=== PATIENT | female | born 1950 | race Caucasian/White ===

== ENCOUNTER → 2016-02-20 | Outpatient (CLI) | payer MEDICARE, OTHER ==
[~2016-02-20] MED LIST: ALBU6.7H INH; FERR325T PO; FURO10SO PO; HYDR-3583 PO; SPIR100T PO; XARE10TA PO
[2016-02-20 10:39] LABS: HEMATOCRIT 34.5 % (35.0-46.0); MEAN CELL VOLUME 91.7 FL (80.0-100.0); MEAN CORPUSCULAR HGB CONC 33.8 % (32.0-36.0); PLATELET COUNT 64 TH/MM3 (150-450); RED BLOOD COUNT 3.77 MIL/MM3 (4.00-5.30); RED CELL DISTRIBUTION WIDTH 14.8 % (11.6-17.2); WHITE BLOOD COUNT 4.6 TH/MM3 (4.0-11.0)
[2016-02-20 11:08] LABS: ALKALINE PHOSPHATASE 134 U/L (45-117); ALT (GPT) 15 U/L (10-53); ANION GAP 9 MEQ/L (5-15); AST (GOT) 16 U/L (15-37); BICARBONATE 24.3 MEQ/L (21.0-32.0); BLOOD UREA NITROGEN 9 MG/DL (7-18); CHLORIDE 92 MEQ/L (98-107); GLOMERULAR FILTRATION RATE 72 ML/MIN (>89); GLUCOSE,FASTING 109 MG/DL (74-99); POTASSIUM 3.9 MEQ/L (3.5-5.1); SODIUM (NA) 125 MEQ/L (136-145); TOTAL BILIRUBIN ADULT 1.8 MG/DL (0.2-1.0)
[2016-02-20 11:20] LABS: REVIEW FLAG AUTO DIFF
== END ==
LOC: CLAB 10:15
PROVIDERS: ATTEND Family Medicine
DX: J44.9 Chronic obstructive pulmonary disease, unspecified (principal); M25.551 Pain in right hip; K74.60 Unspecified cirrhosis of liver
CPT/HCPCS: 36415; 80053; 82140; 85027

== ENCOUNTER → 2016-03-27 | Day surgery (SDC) | payer MEDICARE, OTHER ==
[~2016-03-27] MED LIST changes: +BUPIVACAINE/EPINEPHRINE 0.25% PF 30 ML VIAL ONE; +BUPIVACAINE/EPINEPHRINE 0.5% PF 30 ML VIAL ONE; +MEPERIDINE HCL 25 MG/ML VIAL ONE; +MIDAZOLAM HCL 2 MG/2 ML VIAL ONE; +ONDANSETRON HCL 4 MG/2 ML VIAL IV PUSH ONE; +PROPOFOL 200 MG/20 ML AMP IV ONE; +SODIUM CHLORIDE 0.9% 20 ML VIAL ONE; +VANCOMYCIN 500 MG VIAL ONE; +ceFAZolin 2 GM PREMIX 50 ML ONE
--- NOTE | 2016-03-27 11:14 | TN ---
cc: ELIEZER PRABHAKAR DATE OF SURGERY: 03/27/2016 PREOPERATIVE DIAGNOSIS 1. History of liver disease. 2. Umbilical hernia. POSTOPERATIVE DIAGNOSIS 1. History of liver disease. 2. Umbilical hernia. PROCEDURE Open primary umbilical hernia repair, 5 cm x 5 cm defect primary repair. ANESTHESIA General and local anesthetic. ATTENDING SURGEON Dr. Prabhakar. RESIDENTIAL GAS HEAT TECHNICIAN Staff. BLOOD LOSS Less than 10 ccs. COMPLICATIONS None. FINDINGS 5 cm x 5 cm umbilical defect with no intra-abdominal ascites with chronically incarcerated hernia. 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 The patient currently has no ascites but has a large 5 cm chronically incarcerated umbilical hernia with bowel. The patient does not have obstructive symptoms, but due to the small neck of the hernia and a large amount of bowel incarcerated in the hernia this was high risk for incarceration. Despite the patient's increased risk due to her liver and kidney disease the operative repair of this was indicated due to high risk of incarceration. We had discussed risks, benefits and alternatives with the patient in detail and all of her questions were answered to her satisfaction. She did wish to undergo repair of the hernia. PROCEDURE After informed consent was obtained, the patient was taken to the operating room and placed in the supine position, placed under general anesthesia. The patient's abdomen was prepped and draped in sterile fashion. Time-out was performed. Local anesthetic, 0.25% Marcaine was used at the planned incision site. Approximately 10 cm incision was made horizontally over the hernia. We used blunt dissection as well as Bovie electrocautery to dissect out the hernia sac away from subcutaneous tissue, all the way down to the umbilical defect. Once we had mobilized this we were actually able to reduce the hernia sac contents back into the abdomen. We did ligate the sac and over-sew this with 0 locking running suture. We were then able to reduce this down to the defect. The fascia edges were intact and very strong. We did cut this back a few millimeters to good fascial edges. We had actually very minimal tension to close this horizontally. We then turned our attention towards closure and closed this with approximately 10 interrupted 2-0 Prolene sutures. We had good technical repair. We then were able to excise some access skin, this is large of size hernia and close the skin with 3-0 deep dermal Vicryls followed by 4-0 Monocryl and Dermabond. We did also of note, did place one 3-0 Vicryl to recreate the umbilical skin fold. The patient had a binder placed on her abdomen, was discontinued from anesthesia and taken to the PACU in stable condition. The patient tolerated the procedure well. No apparent complications. All counts were correct and I was present and scrubbed for the entire procedure. MD RANDI Moise/HOLLY /10:42 AM /10:51 AM
== END | disposition home or self-care (01) ==
LOC: ESDC 07:37
PROVIDERS: ATTEND Surgery
DX: K42.0 Umbilical hernia with obstruction, without gangrene (principal); K76.9 Liver disease, unspecified
CPT/HCPCS: 00750; 49587; 88302; J0690; J2175; J2250; J2405; J3010; 88304; J3370

== ENCOUNTER → 2016-05-27 | Outpatient (CLI) | payer MEDICARE, OTHER ==
[~2016-05-27] MED LIST changes: -BUPIVACAINE/EPINEPHRINE 0.25% PF 30 ML VIAL ONE; -BUPIVACAINE/EPINEPHRINE 0.5% PF 30 ML VIAL ONE; -MEPERIDINE HCL 25 MG/ML VIAL ONE; -MIDAZOLAM HCL 2 MG/2 ML VIAL ONE; -ONDANSETRON HCL 4 MG/2 ML VIAL IV PUSH ONE; -PROPOFOL 200 MG/20 ML AMP IV ONE; -SODIUM CHLORIDE 0.9% 20 ML VIAL ONE; -VANCOMYCIN 500 MG VIAL ONE; -ceFAZolin 2 GM PREMIX 50 ML ONE
[2016-05-27 15:25] LABS: AUTOMATED NEUTROPHIL # 2.2 TH/MM3 (1.8-7.7); BASOPHIL % 0.8 % (0.0-2.0); EOSINOPHIL # 0.1 TH/MM3 (0-0.4); HEMATOCRIT 37.3 % (35.0-46.0); LYMPH % 27.7 % (9.0-44.0); MEAN CELL VOLUME 97.4 FL (80.0-100.0); MEAN CORPUSCULAR HEMOGLOBIN 32.5 PG (27.0-34.0); MEAN CORPUSCULAR HGB CONC 33.4 % (32.0-36.0); MONO % 10.5 % (0.0-8.0); PLATELET COUNT 57 TH/MM3 (150-450); RED BLOOD COUNT 3.83 MIL/MM3 (4.00-5.30); RED CELL DISTRIBUTION WIDTH 14.1 % (11.6-17.2); WHITE BLOOD COUNT 3.7 TH/MM3 (4.0-11.0)
[2016-05-27 15:30] LABS: HEMO FLAGS AUTO DIFF
[2016-05-27 15:51] LABS: ALT (GPT) 19 U/L (10-53); AMYLASE 37 U/L (25-115); ANION GAP 7 MEQ/L (5-15); AST (GOT) 29 U/L (15-37); BICARBONATE 27.4 MEQ/L (21.0-32.0); BLOOD UREA NITROGEN 6 MG/DL (7-18); CHLORIDE 102 MEQ/L (98-107); GLOMERULAR FILTRATION RATE 81 ML/MIN (>89); GLUCOSE,FASTING 98 MG/DL (74-99); SODIUM (NA) 136 MEQ/L (136-145)
[2016-05-27 15:54] LABS: ALKALINE PHOSPHATASE 162 U/L (45-117); HDL CHOLESTEROL 73.8 MG/DL (40.0-60.0); LDL CHOLESTEROL 74 MG/DL (0-99); TOTAL BILIRUBIN ADULT 1.1 MG/DL (0.2-1.0)
[2016-05-27 16:14] LABS: PLATELET ESTIMATE SMEAR LOW (NORMAL)
[2016-05-27 16:15] LABS: PLATELET MORPHOLOGY ENLARGED (NORMAL); SCAN/DIFF AUTO DIFF CONFIRMED
== END ==
LOC: CLAB 14:45
PROVIDERS: ATTEND Family Medicine
DX: K74.60 Unspecified cirrhosis of liver (principal)
CPT/HCPCS: 36415; 80053; 80061; 82140; 82150; 83690; 85025

== ENCOUNTER 2016-12-10 21:28 | Inpatient (IN) | payer MEDICARE, OTHER ==
[~2016-12-10] VITALS: Ht 172.7 cm; Wt 75.0 kg
[2016-12-10 21:38] VITALS: BP 149/92; PULSE 104; RESP 16; TEMP 98.5; O2SAT 95
--- NOTE | 2016-12-10 21:55 | PD ---
Physical Exam Date Seen by Provider: Dec 10, 2016 Time Seen by Provider: 21:52 Narrative 66-year-old [id number] white female presents to emergency department by EMS for evaluation of a fall. Patient is complaining of pain in her left elbow. Patient was immobilized by before EMS evaluated the patient. The patient denies any injury to her head, neck or back. No numbness, tingling or weakness. She states the pain is severe. Patient admits to intoxication. Vital signs reviewed. Pt waiting for bed placement. Data Data Last Documented VS Vital Signs Date Time Temp Pulse Resp B/P (MAP) Pulse Ox O2 Delivery O2 Flow Rate FiO2 12/10/16 21:38 98.5 104 16 149/92 (111) 95 Room Air [facility] Medical Record Reviewed: No Supervised Visit with TRELL: Roby Mansfield Dec 10, 2016 21:55
--- NOTE | 2016-12-10 21:55 | PD ---
Physical Exam Date Seen by Provider: Dec 10, 2016 Time Seen by Provider: 21:52 Narrative 66-year-old [id number] white female presents to emergency department by EMS for evaluation of a fall. Patient is complaining of pain in her left elbow. Patient was immobilized by before EMS evaluated the patient. The patient denies any injury to her head, neck or back. No numbness, tingling or weakness. She states the pain is severe. Patient admits to intoxication. Vital signs reviewed. Pt waiting for bed placement. Data Data Last Documented VS Vital Signs Date Time Temp Pulse Resp B/P (MAP) Pulse Ox O2 Delivery O2 Flow Rate FiO2 12/10/16 21:38 98.5 104 16 149/92 (111) 95 Room Air [facility] Medical Record Reviewed: No Supervised Visit with TRELL: Roby Mansfield Dec 10, 2016 21:55
--- NOTE | 2016-12-10 21:55 | PD ---
Physical Exam Date Seen by Provider: Dec 10, 2016 Time Seen by Provider: 21:52 Narrative 66-year-old [id number] white female presents to emergency department by EMS for evaluation of a fall. Patient is complaining of pain in her left elbow. Patient was immobilized by before EMS evaluated the patient. The patient denies any injury to her head, neck or back. No numbness, tingling or weakness. She states the pain is severe. Patient admits to intoxication. Vital signs reviewed. Pt waiting for bed placement. Data Data Last Documented VS Vital Signs Date Time Temp Pulse Resp B/P (MAP) Pulse Ox O2 Delivery O2 Flow Rate FiO2 12/10/16 21:38 98.5 104 16 149/92 (111) 95 Room Air [facility] Medical Record Reviewed: No Supervised Visit with TRELL: Roby Mansfield Dec 10, 2016 21:55
--- NOTE | 2016-12-10 23:06 | PD ---
HPI Chief Complaint: Injury Time Seen by Provider: 22:51 Travel History International Travel<30 days: No Contact w/Intl Traveler<30days: No Traveled to known affect area: No History of Present Illness HPI PT STATES SHE WAS DRINKING ALCOHOL, THEN WHEN SHE TRIED TO GET UP LOST HER BALANCE/TRIPPED ON HER FLIP FLOPS AND LANDED ON HER LEFT ELBOW JUST REFRIGERATION INSULATOR. C/O PAIN, SHARP, NEAR LEFT ELBOW, 8/10, WORSE WITH MOVEMENT, NO ALLEVIATING FACTORS , (DENIES TAKING ANY ANTICOAGULATING MEDICATIONS). REVIEWED CHART AND RN NOTES ALL: MULTIPLE PMHX:COPD, CHF, LOBECTOMY, NOT OXYGEN DEPENDANT PFSH Past Medical History Arthritis: Yes Asthma: Yes Autoimmune Disease: No Anxiety: Yes Depression: No Heart Rhythm Problems: No Cancer: No Cardiovascular Problems: Yes High Cholesterol: No Chemotherapy: No Chest Pain: No Congestive Heart Failure: Yes Cirrhosis: Yes COPD: Yes Cerebrovascular Accident: No Coronary Artery Disease: No Diabetes: No Diminished Hearing: No Endocrine: No Gastrointestinal Disorders: Yes GERD: Yes Genitourinary: No Hepatitis: Yes (HEP C) Hiatal Hernia: No Immune Disorder: No Kidney Stones: No Musculoskeletal: Yes Neurologic: Yes Psychiatric: Yes Reproductive: No Respiratory: Yes Immunizations Current: Yes Migraines: Yes Pneumonia: Yes Radiation Therapy: No Renal Failure: No Seizures: No Sickle Cell Disease: No Sleep Apnea: No Thyroid Disease: No Ulcer: No Tetanus Vaccination: < 5 Years Influenza Vaccination: Yes Menopausal: Yes : 4 Para: 4 Tubal Ligation: Yes Past Surgical History Abdominal Surgery: No AICD: No Arteriovenous Shunt: No Cardiac Surgery: No Ear Surgery: No Endocrine Surgery: No Eye Surgery: No Genitourinary Surgery: No Gynecologic Surgery: No Insulin Pump: No Joint Replacement: No Oral Surgery: No Pacemaker: No Thoracic Surgery: Yes (LEFT LOBECTOMY) Tonsillectomy: Yes Other Surgery: Yes (left lung) Social History Alcohol Use: Yes Tobacco Use: Yes (2 CIGS/DAILY) Substance Use: Yes (MARIJUANA ) Allergies-Medications (Allergen,Severity, Reaction): Coded Allergies: Sulfa (Sulfonamide Antibiotics) (Unverified Allergy, Intermediate, REDNESS , 12/10/16) Opioids - Morphine Analogues (Unverified Adverse Reaction, Intermediate, NAUSEA VOMITING, HEADACHES, 12/10/16) Opioids-Meperidine and Related (Unverified Adverse Reaction, Intermediate , NAUSEA VOMITING, HEADACHES, 12/10/16) Opioids-Methadone and Related (Unverified Adverse Reaction, Intermediate, NAUSEA VOMITING, HEADACHES, 12/10/16) Reported Meds & Prescriptions Reported Meds & Active Scripts Active Oxycodone (Oxycodone HCl) 10 Mg Tab 10 Mg PO Q4H PRN Calcium 600+D 200 (Calcium Carbonate-Vitamin D) 600-200 Mg-Unit Tab 1 Tab PO BID Xarelto (Rivaroxaban) 10 Mg Tab 10 Mg PO DAILY Ferrous Sulfate 325 Mg Tab 325 Mg PO DAILY Hydrocodone-Acetaminophen 10-325 mg Tab 1 Tab PO Q4H PRN Reported Spironolactone 100 Mg Tab 100 Mg PO DAILY Furosemide Liq (Furosemide) 10 Mg/Ml Soln 40 Mg PO DAILY Proventil Hfa 6.7 GM Inh (Albuterol Sulfate) 90 Mcg/Act Aer 2 Puff INH Q4HR PRN SHAKE WELL BEFORE USE Review of Systems Except as stated in HPI: all other systems reviewed are Neg General / Constitutional: No: Fever Eyes: No: Visual changes HENT: No: Headaches Cardiovascular: No: Chest Pain or Discomfort Respiratory: No: Shortness of Breath Gastrointestinal: No: Abdominal Pain Genitourinary: No: Dysuria Musculoskeletal: Positive: Pain (LEFT ELBOW PAIN) Skin: No Rash Neurologic: No: Weakness Psychiatric: No: Depression Endocrine: No: Polydipsia Hematologic/Lymphatic: No: Easy Bruising Physical Exam Narrative GENERAL: SKIN: Warm and dry. PATIENT HAS DEFORMITY TO HER LEFT OLECRANON AREA. ON THIS AREA ALSO HAS 3 SEPARATE WOUNDS TWO OF WHICH ARE PUNCTURE WOUND LIKE AND ONE THAT IS V SHAPED AT 2CM TOTAL LENGTH. HEAD: Atraumatic. Normocephalic. EYES: Pupils equal and round. No scleral icterus. No injection or drainage. ENT: No nasal bleeding or discharge. Mucous membranes pink and moist. NECK: Trachea midline. No JVD. CARDIOVASCULAR: Regular rate and rhythm. RESPIRATORY: No accessory muscle use. Clear to auscultation. Breath sounds equal bilaterally. GASTROINTESTINAL: Abdomen soft, non-tender, nondistended. MUSCULOSKELETAL: Extremities without clubbing, cyanosis, or edema. No obvious deformities. NEUROLOGICAL: Awake and alert. No obvious cranial nerve deficits. Motor grossly within normal limits. Five out of 5 muscle strength in the arms and legs. Normal speech. PSYCHIATRIC: Appropriate mood and affect; insight and judgment normal. Data Data Last Documented VS Vital Signs Date Time Temp Pulse Resp B/P (MAP) Pulse Ox O2 Delivery O2 Flow Rate FiO2 12/10/16 23:49 71 18 148/66 (93) 98 Room Air 12/10/16 21:38 98.5 Orders Orders Complete Blood Count With Diff (12/10/16 23:20) Basic Metabolic Panel (Bmp) (12/10/16 23:20) Prothrombin Time / Inr (Pt) (12/10/16 23:20) Act Partial Throm Time (Ptt) (12/10/16 23:20) Urinalysis - C+S If Indicated (12/10/16 23:20) Iv Access Insert/Monitor (12/10/16 23:20) Drug Screen, Random Urine (12/10/16 23:20) Alcohol (Ethanol) (12/10/16 23:20) Salicylates (Aspirin) (12/10/16 23:20) Tylenol (Acetaminophen) (12/10/16 23:20) Morphine Inj (Morphine Inj) (12/10/16 23:30) Splinting (12/10/16 ) Elbow, Limited (Ap&Lat) (12/10/16 ) Lidocaine 1% Inj (50 Ml) (Xylocaine 1% I (12/11/16 00:30) Hepatic Functional Panel (12/11/16 02:27) Magnesium (Mg) (12/11/16 02:27) Sodium Chlor 0.9% 1000 Ml Inj (Ns 1000 M (12/11/16 02:30) Admit Order (Ed Use Only) (12/11/16 03:01) Labs Laboratory Tests Test 12/10/16 23:48 White Blood Count 2.8 TH/MM3 Red Blood Count 3.37 MIL/MM3 Hemoglobin 11.9 GM/DL Hematocrit 34.1 % Mean Corpuscular Volume 101.2 FL Mean Corpuscular Hemoglobin 35.4 PG Mean Corpuscular Hemoglobin Concent 35.0 % Red Cell Distribution Width 14.6 % Platelet Count 38 TH/MM3 Mean Platelet Volume 10.9 FL Neutrophils (%) (Auto) 63.1 % Lymphocytes (%) (Auto) 26.5 % Monocytes (%) (Auto) 8.5 % Eosinophils (%) (Auto) 1.2 % Basophils (%) (Auto) 0.7 % Neutrophils # (Auto) 1.8 TH/MM3 Lymphocytes # (Auto) 0.8 TH/MM3 Monocytes # (Auto) 0.2 TH/MM3 Eosinophils # (Auto) 0.0 TH/MM3 Basophils # (Auto) 0.0 TH/MM3 CBC Comment AUTO DIFF Differential Total Cells Counted 100 Neutrophils % (Manual) 57 % Band Neutrophils % 14 % Lymphocytes % 18 % Monocytes % 7 % Eosinophils % 3 % Basophils % 1 % Neutrophils # (Manual) 2.0 TH/MM3 Differential Comment FINAL DIFF MANUAL Platelet Estimate LOW Platelet Morphology Comment ENLARGED Prothrombin Time 13.8 SEC Prothromb Time International Ratio 1.2 RATIO Activated Partial Thromboplast Time 34.8 SEC Blood Urea Nitrogen 4 MG/DL Creatinine 0.50 MG/DL Random Glucose 118 MG/DL Calcium Level 7.8 MG/DL Sodium Level 124 MEQ/L Potassium Level 4.1 MEQ/L Chloride Level 90 MEQ/L Carbon Dioxide Level 21.5 MEQ/L Anion Gap 13 MEQ/L Estimat Glomerular Filtration Rate 124 ML/MIN Magnesium Level 1.7 MG/DL Total Bilirubin 1.4 MG/DL Direct Bilirubin 0.4 MG/DL Indirect Bilirubin 1.0 MG/DL Aspartate Amino Transf (AST/SGOT) 78 U/L Alanine Aminotransferase (ALT/SGPT) 34 U/L Alkaline Phosphatase 182 U/L Total Protein 8.7 GM/DL Albumin 3.3 GM/DL Salicylates Level 2.9 MG/DL Acetaminophen Level LESS THAN 2.0 MCG/ML Ethyl Alcohol Level 296 MG/DL MDM Medical Decision Making Medical Screen Exam Complete: Yes Emergency Medical Condition: Yes Medical Record Reviewed: Yes Differential Diagnosis FX V DISLOCATION V SUBLUXATION Narrative Course XRAY REVEALED TRANSVERSE SUPRACONDYLAR FX WITH 30 DEGREE ANTERIOR ANGULATION...CLOSED. Physician Communication Physician Communication D/W DR SERRA WHO REQUESTS NPO AND WILL REPAIR IN AM....SIGNED OUT PENDING LABS AND ADMIT TO [facility]. Diagnosis Primary Impression: ANGULATED LEFT SUPRACONDYLAR FRACTURE Additional Impression: Acute alcohol intoxication Qualified Codes: F10.929 - Alcohol use, unspecified with intoxication, unspecified Admitting Information Admitting Physician Requests: Admit Scripts Oxycodone (Oxycodone) 10 Mg Tab 10 MG PO Q4H Y for PAIN, #60 TAB 0 Refills Prov: Jatin Castorena Jr. 12/11/16 Calcium Carbonate-Vitamin D (Calcium 600+D 200) 600-200 Mg-Unit Tab 1 TAB PO BID for Nutritional Supplement, #60 TAB 0 Refills Prov: Jatin Castorena Jr. 12/11/16 nAgel David MD Dec 10, 2016 23:06
[2016-12-10] MEDS ORDERED: MORPHINE SULFATE 2 MG/ML INJ IV PUSH ONE (23:30)
[2016-12-10 23:49] VITALS: BP 148/66; PULSE 71; RESP 18; O2SAT 98
--- NOTE | 2016-12-10 23:52 | RADRPT ---
EXAM DATE/TIME: 12/10/2016 23:14 [place] COMPARISON: No previous studies available for comparison. INDICATIONS : Elbow pain from falling down stairs. MEDICAL HISTORY : None. SURGICAL HISTORY : None. ENCOUNTER: Initial ACUITY: 1 day PAIN SCORE: 0/10 LOCATION: Left elbow FINDINGS: There is a comminuted primarily transverse fracture of the immediate supracondylar left humerus with approximately 30 apex anterior angulation and slight impaction at the fracture site. There is slight splaying of the condylar fragments with a longitudinal fracture component which appears to extend in to the elbow joint centrally. The radius and ulna are grossly intact. There is prominent soft tissue swelling over the olecranon. Couple small ossific densities adjacent to and posterior to the olecrano n may be tiny avulsion or chip fractures or foreign material if there is skin disruption in this area . There does appear to be soft tissue air in the volar soft tissues of the forearm CONCLUSION: Complex left elbow fracture as described Eddie Velazquez MD on December 10, 2016 at 23:47 Board Certified Radiologist. This report was verified electronically.
[2016-12-11] VITALS (9 sets, daily range): BP systolic 127–178; BP diastolic 52–79; PULSE 73–100; RESP 17–21; TEMP 96.6–99.7; O2SAT 92–100
[2016-12-11] MEDS ORDERED: LIDOCAINE HCL 1% 50 ML VIAL INFIL ONE (00:30)
[2016-12-11 02:08] LABS: AUTOMATED NEUTROPHIL # 1.8 TH/MM3 (1.8-7.7); BASOPHIL % 0.7 % (0.0-2.0); EOSINOPHIL % 1.2 % (0.0-4.0); HEMATOCRIT 34.1 % (35.0-46.0); HEMOGLOBIN 11.9 GM/DL (11.6-15.3); LYMPH % 26.5 % (9.0-44.0); LYMPHOCYTE # 0.8 TH/MM3 (1.0-4.8); MEAN CELL VOLUME 101.2 FL (80.0-100.0); MEAN CORPUSCULAR HEMOGLOBIN 35.4 PG (27.0-34.0); MEAN PLATELET VOLUME 10.9 FL (7.0-11.0); MONO % 8.5 % (0.0-8.0); MONOCYTE # 0.2 TH/MM3 (0-0.9); NEUT % 63.1 % (16.0-70.0); PLATELET COUNT 38 TH/MM3 (150-450); RED BLOOD COUNT 3.37 MIL/MM3 (4.00-5.30); RED CELL DISTRIBUTION WIDTH 14.6 % (11.6-17.2); WHITE BLOOD COUNT 2.8 TH/MM3 (4.0-11.0)
[2016-12-11 02:20] LABS: INTERNATIONAL NORMALIZED RATIO 1.2 RATIO; PROTHROMBIN TIME - PATIENT 13.8 SEC (9.8-11.6)
[2016-12-11 02:23] LABS: ACETAMINOPHEN LESS THAN 2.0 MCG/ML (10.0-30.0); BICARBONATE 21.5 MEQ/L (21.0-32.0); BLOOD UREA NITROGEN 4 MG/DL (7-18); CALCIUM 7.8 MG/DL (8.5-10.1); CHLORIDE 90 MEQ/L (98-107); GLOMERULAR FILTRATION RATE 124 ML/MIN (>89); GLUCOSE,RANDOM 118 MG/DL (74-106)
[2016-12-11 02:25] LABS: SODIUM (NA) 124 MEQ/L (136-145)
[2016-12-11] MEDS ORDERED: SODIUM CHLOR 0.9% 1000 ML INJ 1,000 ML IV ONE (02:30)
--- NOTE | 2016-12-11 02:49 | PD ---
Physical Exam Date Seen by Provider: Dec 11, 2016 Time Seen by Provider: 02:46 Narrative For full history and physical examination please see previous provider's note. Data Data Last Documented VS Vital Signs Date Time Temp Pulse Resp B/P (MAP) Pulse Ox O2 Delivery O2 Flow Rate FiO2 12/10/16 23:49 71 18 148/66 (93) 98 Room Air 12/10/16 21:38 98.5 Orders Orders Complete Blood Count With Diff (12/10/16 23:20) Basic Metabolic Panel (Bmp) (12/10/16 23:20) Prothrombin Time / Inr (Pt) (12/10/16 23:20) Act Partial Throm Time (Ptt) (12/10/16 23:20) Urinalysis - C+S If Indicated (12/10/16 23:20) Iv Access Insert/Monitor (12/10/16 23:20) Drug Screen, Random Urine (12/10/16 23:20) Alcohol (Ethanol) (12/10/16 23:20) Salicylates (Aspirin) (12/10/16 23:20) Tylenol (Acetaminophen) (12/10/16 23:20) Morphine Inj (Morphine Inj) (12/10/16 23:30) Splinting (12/10/16 ) Elbow, Limited (Ap&Lat) (12/10/16 ) Lidocaine 1% Inj (50 Ml) (Xylocaine 1% I (12/11/16 00:30) Hepatic Functional Panel (12/11/16 02:27) Magnesium (Mg) (12/11/16 02:27) Diet Npo (12/11/16 Breakfast) Sodium Chlor 0.9% 1000 Ml Inj (Ns 1000 M (12/11/16 02:30) Admit Order (Ed Use Only) (12/11/16 03:01) Labs Laboratory Tests Test 12/10/16 23:48 White Blood Count 2.8 TH/MM3 Red Blood Count 3.37 MIL/MM3 Hemoglobin 11.9 GM/DL Hematocrit 34.1 % Mean Corpuscular Volume 101.2 FL Mean Corpuscular Hemoglobin 35.4 PG Mean Corpuscular Hemoglobin Concent 35.0 % Red Cell Distribution Width 14.6 % Platelet Count 38 TH/MM3 Mean Platelet Volume 10.9 FL Neutrophils (%) (Auto) 63.1 % Lymphocytes (%) (Auto) 26.5 % Monocytes (%) (Auto) 8.5 % Eosinophils (%) (Auto) 1.2 % Basophils (%) (Auto) 0.7 % Neutrophils # (Auto) 1.8 TH/MM3 Lymphocytes # (Auto) 0.8 TH/MM3 Monocytes # (Auto) 0.2 TH/MM3 Eosinophils # (Auto) 0.0 TH/MM3 Basophils # (Auto) 0.0 TH/MM3 CBC Comment AUTO DIFF Differential Total Cells Counted 100 Neutrophils % (Manual) 57 % Band Neutrophils % 14 % Lymphocytes % 18 % Monocytes % 7 % Eosinophils % 3 % Basophils % 1 % Neutrophils # (Manual) 2.0 TH/MM3 Differential Comment FINAL DIFF MANUAL Platelet Estimate LOW Platelet Morphology Comment ENLARGED Prothrombin Time 13.8 SEC Prothromb Time International Ratio 1.2 RATIO Activated Partial Thromboplast Time 34.8 SEC Blood Urea Nitrogen 4 MG/DL Creatinine 0.50 MG/DL Random Glucose 118 MG/DL Calcium Level 7.8 MG/DL Sodium Level 124 MEQ/L Potassium Level 4.1 MEQ/L Chloride Level 90 MEQ/L Carbon Dioxide Level 21.5 MEQ/L Anion Gap 13 MEQ/L Estimat Glomerular Filtration Rate 124 ML/MIN Magnesium Level 1.7 MG/DL Total Bilirubin 1.4 MG/DL Direct Bilirubin 0.4 MG/DL Indirect Bilirubin 1.0 MG/DL Aspartate Amino Transf (AST/SGOT) 78 U/L Alanine Aminotransferase (ALT/SGPT) 34 U/L Alkaline Phosphatase 182 U/L Total Protein 8.7 GM/DL Albumin 3.3 GM/DL Salicylates Level 2.9 MG/DL Acetaminophen Level LESS THAN 2.0 MCG/ML Ethyl Alcohol Level 296 MG/DL [facility] Medical Record Reviewed: Yes Supervised Visit with TRELL: Yes Interpretation(s) Last Impressions Elbow X-Ray 12/10/16 0000 Signed Impressions: Service Date/Time: Saturday, December 10, 2016 23:14 - CONCLUSION: Complex left elbow fracture as described Eddie Velazquez MD Laboratory Tests Test 12/10/16 23:48 Prothrombin Time 13.8 SEC Prothromb Time International Ratio 1.2 RATIO Activated Partial Thromboplast Time 34.8 SEC Blood Urea Nitrogen 4 MG/DL Creatinine 0.50 MG/DL Random Glucose 118 MG/DL Calcium Level 7.8 MG/DL Sodium Level 124 MEQ/L Potassium Level 4.1 MEQ/L Chloride Level 90 MEQ/L Carbon Dioxide Level 21.5 MEQ/L Anion Gap 13 MEQ/L Estimat Glomerular Filtration Rate 124 ML/MIN Salicylates Level 2.9 MG/DL Acetaminophen Level LESS THAN 2.0 MCG/ML Ethyl Alcohol Level 296 MG/DL Vital Signs Date Time Temp Pulse Resp B/P (MAP) Pulse Ox O2 Delivery O2 Flow Rate FiO2 12/10/16 23:49 71 18 148/66 (93) 98 Room Air 12/10/16 21:38 98.5 104 16 149/92 (111) 95 Room Air Narrative Course Patient presented to emergency for evaluation of left elbow pain after sustaining a mechanical fall. Patient has a complex fracture of the left elbow , patient will be going to the OR in the morning with Dr. Christian. Patient's sodium level is 124, 1 L normal saline IV ordered alcohol level 296 Salicylate and acetaminophen level are unremarkable Coags reviewed. CBC with a white count of 2.8, platelet count 38 Magnesium level is 1.7, LFTs reviewed [facility] paged for admission. Discussed with Dr. Church who accepted admission. Admission orders placed. Diagnosis Primary Impression: ANGULATED LEFT SUPRACONDYLAR FRACTURE Additional Impressions: Hyponatremia Acute alcohol intoxication Qualified Codes: F10.929 - Alcohol use, unspecified with intoxication, unspecified COPD (chronic obstructive pulmonary disease) Qualified Codes: J44.9 - Chronic obstructive pulmonary disease, unspecified Admitting Information Admitting Physician Requests: Admit Patient Instructions: General Instructions, Elbow Fracture (ED) Departure Forms: Tests/Procedures Sruthi Garcia Dec 11, 2016 02:49
[2016-12-11 02:50] LABS: TOTAL BILIRUBIN ADULT 1.4 MG/DL (0.2-1.0)
[2016-12-11 02:51] LABS: ALBUMIN 3.3 GM/DL (3.4-5.0); DIRECT BILIRUBIN ADULT 0.4 MG/DL (0.0-0.2); MAGNESIUM 1.7 MG/DL (1.5-2.5); TOTAL PROTEIN 8.7 GM/DL (6.4-8.2)
[2016-12-11 02:56] LABS: BANDS 14 % (0-6); BASOPHILS 1 % (0-2); LYMPHOCYTES 18 % (9-44); MONOCYTES 7 % (0-8); POLYS (SEG NEUTROPHILS) 57 % (16-70)
[2016-12-11] MEDS ORDERED: NALOXONE HCL 0.4 MG/ML AMP IV PUSH PRN ×2 (03:15→04:30)
[2016-12-11] MEDS ORDERED: LACTULOSE SYRUP 20 GM/30 ML CUP PO PRN (03:15)
[2016-12-11] MEDS ORDERED: MAGNESIUM HYDROXIDE SUSP 30 ML CUP PO PRN (03:15)
[2016-12-11] MEDS ORDERED: SODIUM CHLORIDE 0.9% FLUSH 10 ML FLUSH IV FLUSH PRN (03:15)
[2016-12-11] MEDS ORDERED: BISACODYL 10 MG SUPP RECTAL PRN (03:15)
[2016-12-11] MEDS ORDERED: SENNOSIDES 8.6 MG TAB PO PRN (03:15)
[2016-12-11] MEDS ORDERED: THIAMINE HCL 100 MG TAB PO ONE (03:15)
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
[2016-12-11] MEDS: MORPHINE SULFATE 4 MG/ML INJ IV PUSH PRN (04:51)
--- NOTE | 2016-12-11 06:35 | PD.ORT.PN ---
Subjective Subjective Remarks s/p fall while drinking at home left elbow pain. Objective Vitals Vital Signs Date Time Temp Pulse Resp B/P (MAP) Pulse Ox O2 Delivery O2 Flow Rate FiO2 12/11/16 04:00 96.6 80 17 150/67 (94) 99 12/11/16 03:51 75 18 140/71 (94) 100 12/10/16 23:49 71 18 148/66 (93) 98 Room Air 12/10/16 21:38 98.5 104 16 149/92 (111) 95 Room Air I/O 12/10/16 12/10/16 12/10/16 12/11/16 12/11/16 12/11/16 07:00 15:00 23:00 07:00 15:00 23:00 Intake Total 0 ml Balance 0 ml Intake Oral 0 ml # Voids 1 # Bowel Movements 0 Result Diagram: 12/10/16 2348 12/10/16 2348 Other Results Laboratory Tests Test 12/10/16 23:48 Prothromb Time International Ratio 1.2 RATIO Prothrombin Time 13.8 SEC (9.8-11.6) Objective Remarks LUE: +long arm splint. intact. NVI Assessment & Plan Assessment and Plan 1) Left distal Humerus Fx -npo -consents -surgery today Isael Morocho Dec 11, 2016 06:35
[2016-12-11] MEDS ORDERED: CALCTAB19 PO (06:43)
[2016-12-11] MEDS ORDERED: OXYC-395 PO (06:44)
[2016-12-11] MEDS: SODIUM CHLORIDE 0.9% FLUSH 10 ML FLUSH IV FLUSH SCH ×2 (09:00→21:00)
[2016-12-11] MEDS: THIAMINE HCL 100 MG TAB PO SCH (09:00)
--- NOTE | 2016-12-11 11:24 | MB ---
cc: PRINCE SEGUNDO DATE OF CONSULTATION: 12/11/2016 REASON FOR CONSULTATION Left distal humerus fracture. CONSULTING PHYSICIAN Dr. Church. HISTORY OF PRESENT ILLNESS Nimisha is a 66-year-old female who has a history of chronic alcoholism. She was drinking last night. She fell. She was going upstairs to go to the bathroom. She landed on her left arm. She had immediate left arm pain. She presented to the emergency room where x-rays revealed a comminuted displaced intra-articular left distal humerus fracture. She is currently awake and alert. Her only complaint is her left elbow. Pain is worse with movement. PAST MEDICAL HISTORY ILLNESSES 1. COPD. 2. Hepatitis C. 3. Alcoholic cirrhosis. 4. History of migraines. SURGERIES 1. Right hip replacement. 2. Partial lung lobectomy. 3. Ankle surgery. 4. Tonsillectomy. MEDICATIONS Please see EMR for complete list of inpatient medications. She denies any outpatient medications. ALLERGIES SULFA, OPIOIDS. FAMILY HISTORY Positive for alcohol in her father. SOCIAL HISTORY The patient smokes half-a-pack a day. She smokes marijuana. She drinks alcohol. REVIEW OF SYSTEMS The patient denies headache, visual changes, neck pain, chest pain, shortness of breath, abdominal pain, nausea, vomiting or recent weight loss or numbness or tingling of extremities. She denies fever or chills. She complains of left arm pain. PHYSICAL EXAMINATION GENERAL: The patient is a well-developed, well-nourished 66-year-old female who is awake and alert. She is alert and oriented x3. She appears well-developed, well-nourished. VITAL SIGNS: Temperature 98.4, pulse 73, respirations 18, blood pressure 127/62, O2 sat 95% on room air. HEAD: The patient is normocephalic. Pupils are equal. NECK: Soft, nontender. Trachea is midline. ABDOMEN: Soft, nontender, nondistended. EXTREMITIES: Examination of left arm reveals no tenderness around her shoulder, wrist or fingers. She has intact sensation in all fingers. She has good cap refill in all fingers. Skin is intact. She is very tender to palpation around the elbow. Examination of right arm reveals no pain with shoulder, elbow or wrist motion. She has intact sensation in all fingers. She has good cap refill in all fingers. Skin is intact. Radial pulses palpable. Examination of bilateral lower extremities reveals no pain with hip, knee or ankle motion. Skin is intact. Dorsalis pedis pulses palpable. Sensation is intact to both feet. X-RAYS X-rays of left elbow were reviewed. X-rays reveal comminuted intra-articular left distal humerus fracture. IMPRESSION 1. Alcohol abuse. 2. Alcoholic cirrhosis. 3. Low platelet count of 38,000. 4. Comminuted left distal humerus fracture. PLAN At this point the patient will need a transfusion of platelets prior to surgery. Due to her alcoholism her platelet count is extremely low. Once her platelet count has been elevated, I will plan on surgery. The patient will need open reduction, internal fixation of the left distal humerus. Risks of surgery include bleeding, infection, injuries to arteries, nerves and blood vessels, weakness and numbness of hand as well as medical complications including blood clot, stroke, heart attack and were discussed. All questions were answered. I will plan on surgery today. A mid-level provider in my office (nurse practitioner or physician clerical administrative assistant) may see this patient on follow-up visits and continue to implement the objectives of this plan including: Starting or adjusting medications, injections , cast application, orthotics, brace application, physical therapy, radiological studies (including x-ray, MRI, CT, ultrasound, bone scan), vascular studies, neurologic studies, specialist consultation, and proceeding with surgical management, as appropriate. Prince MD SRIRAM Gaines/HOLLY /11:10 AM /11:16 AM JESUS
--- NOTE | 2016-12-11 13:28 | HHI.PR ---
Addendum to Inpatient Note Addendum Reason: Additional Documentation Additional Information Pt tells me that she is in pain. When asked about her alcohol intake she tells me that she drinks "very little" and when asked to quantify, she states that she drinks about 4-5 drinks a day. denies any chest pain, SOB, nausea or vomiting. on exam, asleep but easily arousable, HR rrr w no murmurs, lungs clear, left arm in sling, able to wiggle her fingers, sensation intact. I agree w admitting physician, Dr. Church that pt not appropriate for sx today due to low sodium levels and platelet count. Dr. HunterCall has been notified and is agreeable to postpone the surgery for tomorrow or friday. Maintain her on fluid restriction. Hyponatremia most likely from her alcoholism. Monitor sodium levels. CIWA protocol has been ordered, sz and fall precautions ordered. Pt has been extensively counseled on quitting drinking. Repeat CBC and BMP in the morning. If platelet count not improved by tomorrow, consider transfusing patient 1 unit of platelets prior to sx. Give gentle hydration w NS@50ml/hr for a total of 500mls Merari Simon MD Dec 11, 2016 13:28
[2016-12-11] MEDS ORDERED: LORazepam 1 MG TAB PO PRN (13:45)
[2016-12-11] MEDS ORDERED: HALOPERIDOL LACTATE 5 MG/ML AMP IM PRN (13:45)
[2016-12-11] MEDS ORDERED: LORazepam 2 MG TAB PO PRN (13:45)
[2016-12-11] MEDS ORDERED: FLUMAZENIL 0.5 MG/5 ML VIAL IV PUSH PRN (13:45)
[2016-12-11] MEDS ORDERED: LORazepam 2 MG/ML VIAL IV PUSH PRN ×4 (13:45)
[2016-12-11] MEDS ORDERED: SODIUM CHLORID 0.9% 500 ML INJ 500 ML IV SCH (15:00)
--- NOTE | 2016-12-11 15:27 | EKG ---
Date Performed: 12/11/2016 Time Performed: 04:27:06 PTAGE: 66 years EKG: Sinus rhythm Septal T wave changes are nonspecific Low QRS voltages in precordial leads Borderline ECG PREVIOUS TRACING : 12/07/2015 22.07 Compared to prior tracing no significant change DOCTOR: Cleve Lee Interpretating Date/Time 12/11/2016 15:25:32
[2016-12-11] MEDS: ONDANSETRON HCL 4 MG/2 ML VIAL IVP PRN (16:11)
[2016-12-11] MEDS: ceFAZolin 2 GM PREMIX 50 ML IV SCH ×2 (16:12→23:15)
[2016-12-11 16:22] LABS: BICARBONATE 23.6 MEQ/L (21.0-32.0); CALCIUM 7.9 MG/DL (8.5-10.1); CREATININE 0.39 MG/DL (0.50-1.00)
[2016-12-11] MEDS: GENTAMICIN 80 MG PREMIX 100 ML IV SCH ×2 (16:33→23:16)
[2016-12-12] VITALS (16 sets, daily range): BP systolic 122–151; BP diastolic 57–83; PULSE 62–92; RESP 13–18; TEMP 96.5–100.6; O2SAT 92–100
[2016-12-12] MEDS: ONDANSETRON HCL 4 MG/2 ML VIAL IVP PRN ×2 (00:09→06:09)
[2016-12-12] MEDS: ceFAZolin 2 GM PREMIX 50 ML IV SCH ×2 (06:10→16:43)
[2016-12-12] MEDS: GENTAMICIN 80 MG PREMIX 100 ML IV SCH ×2 (06:26→14:48)
[2016-12-12] MEDS ORDERED: ACETAMINOPHEN 1000 MG/100 ML 0 ML IV ONE (06:26)
--- NOTE | 2016-12-12 06:27 | PD.ORT.PN ---
Subjective Subjective Remarks Resting comfortably Objective Vitals Vital Signs Date Time Temp Pulse Resp B/P (MAP) Pulse Ox O2 Delivery O2 Flow Rate FiO2 12/12/16 04:53 99.5 80 17 139/66 12/12/16 04:35 98.9 80 17 138/83 92 12/12/16 04:00 98.9 80 16 138/83 (101) 92 12/12/16 02:20 98.4 79 17 135/69 93 12/12/16 02:03 99.6 92 17 122/74 93 12/12/16 00:00 99.6 89 16 130/57 (81) 92 12/11/16 21:00 98.2 77 17 178/76 93 12/11/16 17:30 97.8 78 18 178/75 92 12/11/16 17:15 98.6 77 17 178/79 94 12/11/16 17:10 97.9 77 17 177/76 94 12/11/16 15:45 99.7 100 21 172/52 (92) 95 12/11/16 12:00 98.9 77 18 162/70 (100) 93 12/11/16 08:00 98.4 73 18 127/62 (83) 95 I/O 12/11/16 12/11/16 12/11/16 12/12/16 12/12/16 12/12/16 07:00 15:00 23:00 07:00 15:00 23:00 Intake Total 0 ml 0 ml 1183 ml 798 ml Balance 0 ml 0 ml 1183 ml 798 ml Intake Oral 0 ml 0 ml 480 ml 480 ml IV Total 150 ml Platelets 528 ml 288 ml Blood Product IV Normal Saline Flush 25 ml 30 ml # Voids 1 4 3 2 # Bowel Movements 0 0 0 0 Result Diagram: 12/10/16 2348 12/11/16 1529 Objective Remarks LUE: +long arm splint. intact. NVI Assessment & Plan Assessment and Plan 1) Left distal Humerus Fx -Surgery cancelled yesterday due to low platelet count. Ordered 3 units of platelets yesterday, on 3rd unit now -npo -consents -surgery today if platelet levels are safe Jatin Castorena Jr. Dec 12, 2016 06:27
[2016-12-12 06:49] LABS: AUTOMATED NEUTROPHIL # 4.9 TH/MM3 (1.8-7.7); BASOPHIL % 0.1 % (0.0-2.0); EOSINOPHIL % 0.4 % (0.0-4.0); HEMATOCRIT 21.2 % (35.0-46.0); HEMOGLOBIN 7.6 GM/DL (11.6-15.3); LYMPH % 4.2 % (9.0-44.0); LYMPHOCYTE # 0.2 TH/MM3 (1.0-4.8); MEAN CELL VOLUME 101.2 FL (80.0-100.0); MEAN CORPUSCULAR HEMOGLOBIN 36.1 PG (27.0-34.0); MEAN CORPUSCULAR HGB CONC 35.7 % (32.0-36.0); MONO % 1.3 % (0.0-8.0); MONOCYTE # 0.1 TH/MM3 (0-0.9); PLATELET COUNT 39 TH/MM3 (150-450); RED BLOOD COUNT 2.09 MIL/MM3 (4.00-5.30); RED CELL DISTRIBUTION WIDTH 14.3 % (11.6-17.2); WHITE BLOOD COUNT 5.2 TH/MM3 (4.0-11.0)
[2016-12-12 07:06] LABS: ALBUMIN 2.8 GM/DL (3.4-5.0); ALT (GPT) 24 U/L (10-53); AST (GOT) 37 U/L (15-37); BICARBONATE 25.8 MEQ/L (21.0-32.0); BLOOD UREA NITROGEN 9 MG/DL (7-18); CALCIUM 7.9 MG/DL (8.5-10.1); CHLORIDE 96 MEQ/L (98-107); CREATININE 0.76 MG/DL (0.50-1.00); GLOMERULAR FILTRATION RATE 76 ML/MIN (>89); GLUCOSE,RANDOM 119 MG/DL (74-106); SODIUM (NA) 130 MEQ/L (136-145)
[2016-12-12 07:08] LABS: ALKALINE PHOSPHATASE 114 U/L (45-117); TOTAL BILIRUBIN ADULT 2.1 MG/DL (0.2-1.0); TOTAL PROTEIN 7.2 GM/DL (6.4-8.2)
[2016-12-12] MEDS: THIAMINE HCL 100 MG TAB PO SCH (07:40)
[2016-12-12] MEDS ORDERED: SODIUM CHLOR 0.9% 250 ML INJ 250 ML IV ONE ×3 (07:45→14:30)
[2016-12-12] MEDS ORDERED: GENTAMICIN SULFATE 80 MG/2 ML VIAL ONE (08:35)
[2016-12-12] MEDS ORDERED: PHYTONADIONE 5 MG TAB PO ONE (09:00)
[2016-12-12 09:07] LABS: INTERNATIONAL NORMALIZED RATIO 1.2 RATIO; PROTHROMBIN TIME - PATIENT 13.3 SEC (9.8-11.6)
[2016-12-12 09:10] LABS: D-DIMER 2.43 MG/L FEU (0.00-0.50)
[2016-12-12 09:50] LABS: AUTOMATED NEUTROPHIL # 3.5 TH/MM3 (1.8-7.7); BASOPHIL % 0.2 % (0.0-2.0); EOSINOPHIL % 0.4 % (0.0-4.0); LYMPH % 7.3 % (9.0-44.0); LYMPHOCYTE # 0.3 TH/MM3 (1.0-4.8); MEAN CELL VOLUME 100.8 FL (80.0-100.0); MEAN CORPUSCULAR HEMOGLOBIN 35.8 PG (27.0-34.0); MEAN CORPUSCULAR HGB CONC 35.5 % (32.0-36.0); MEAN PLATELET VOLUME 8.7 FL (7.0-11.0); MONO % 4.9 % (0.0-8.0); MONOCYTE # 0.2 TH/MM3 (0-0.9); NEUT % 87.2 % (16.0-70.0); PLATELET COUNT 50 TH/MM3 (150-450); RED BLOOD COUNT 1.95 MIL/MM3 (4.00-5.30); RED CELL DISTRIBUTION WIDTH 14.2 % (11.6-17.2)
[2016-12-12] MEDS ORDERED: ceFAZolin INJ 1,000 MG VIAL IV ONE (09:50)
[2016-12-12 09:55] LABS: HEMATOCRIT 19.7 % (35.0-46.0)
[2016-12-12] MEDS ORDERED: TRANEXAMIC ACID INJ 1,125 MG in SODIUM CHLORIDE 0.9% INJ 100 ML IV SCH (10:00)
[2016-12-12] MEDS ORDERED: PHYTONADIONE 10 MG/ML VIAL SQ ONE (11:00)
[2016-12-12] MEDS ORDERED: PHYTONADIONE INJ 1 MG/0.5 ML AMP SQ ONE (11:00)
--- NOTE | 2016-12-12 11:23 | PD.OP ---
cc: Prince Purdy MD Operative Report Date of Surgery: Dec 12, 2016 Preoperative Diagnosis: Displaced open left humerus supracondylar intra-articular fracture Postoperative Diagnosis: Procedure: Irrigation and debridement of open left distal humerus fracture, open reduction internal fixation left supracondylar distal humerus fracture Anesthesia: Gen. Surgeon: Prince Purdy Mast Maker(s): TRACY Winston PA-C The surgical procedure was assisted by my physician assistant in nursing. My P.A. presence was necessary throughout this case for the manipulation and positioning of the surgical extremity. My P.A. was assisting me throughout the duration of this procedure. The skill set of a physician assistant in nursing was medically necessary to complete this procedure. During the surgical case the surgical technology instructor was working at the back table and the physician assistant in nursing was directly assisting me. Operation and Findings: Patient was seen and evaluated preoperatively. Treatment options were discussed regarding distal humerus fracture including surgical and nonsurgical treatments. Patient had 2 small puncture wounds consistent with an open fracture. She was initially scheduled for surgery yesterday but was not cleared medically secondary to liver failure and alcohol-related cirrhosis. Patient was transfused platelets overnight but still had is anemic and has low platelet count. Because of the open nature of the injury, surgery cannot be postponed further. After detailed discussion of risk and benefits of procedure patient wishes to proceed with surgery. Risks of surgery include bleeding, infection, nonunion, malunion, painful hardware, loss of motion of shoulder and elbow, weakness and numbness of arm, ulnar nerve injury as well as medical competitions including blood clots, stroke, heart attack, and . Patient was brought to operating room and placed on the OR table. GETA was administered by anesthesiologist. Patient was positioned in lateral decubitus position. Extremities were well-padded. Axillary roll was placed. Operative arm and shoulder were prepped with alcohol followed by Hibiclens and draped usual sterile fashion. Timeout procedure was performed. IV antibiotics were given prior to incision. A standard posterior approach was utilized. Subcutaneous tissues was dissected with Bovie. The lateral border of the triceps was elevated off of the distal humerus. Fracture site was visualized. Next, the ulnar nerve was identified and protected throughout the procedure. The nerve was intact. At this point attention was turned to irrigation debridement of the fracture. One of the traumatic laceration was incorporated into this incision. The edges of the bone were cleaned with curettes. Overall the wound. We healthy. There is no visible gross contamination. Soft tissue and bone were thoroughly irrigated with sterile saline with antibiotics. Next, attention was turned towards fracture reduction. The lateral fracture fragment was reduced first. This fragment was manipulated and keyed into anatomic alignment. K wires were used to hold provisional fixation. Next, The fracture was identified along the medial distal humerus. Soft tissue was removed from the fracture site. Fracture site was cleaned with curettes. At this point the fracture was reduced using fracture tenaculums. Multiplanar fluoroscopy confirmed excellent of fracture. Synthes distal humerus plates were selected. The medial plate was provisionally held the bone with K wires. 3.5 cortical screws were placed to compress plate to bone. Multiple 2.7 locking screws were placed distally. Care was taken to keep screws from penetrating the articular surface. Multiple screws were placed in each side of the fracture. All screws were predrilled and premeasured for appropriate length. Next the lateral plate was placed along the posterior lateral humerus. Plate was provisionally held to bone with K wires. 3.5 cortical screws were used to compress plate to bone. Additional 2.7 locking screws were placed distally. K wires were removed. Final fluoroscopy revealed excellent alignment of fracture with well-placed hardware. Incision was thoroughly irrigated. Fascia was closed with #1 Vicryl, subcutaneous tissues closed with 3 -0 Vicryl, and skin was closed with nabil. Sterile dressings were applied. Needle and sponge counts were correct. Patient was placed into a sling, and then transferred to recovery room in stable condition Prince Purdy MD Dec 12, 2016 11:23
--- NOTE | 2016-12-12 11:23 | PD.OP ---
cc: Prince Purdy MD Operative Report Date of Surgery: Dec 12, 2016 Preoperative Diagnosis: Displaced open left humerus supracondylar intra-articular fracture Postoperative Diagnosis: Procedure: Irrigation and debridement of open left distal humerus fracture, open reduction internal fixation left supracondylar distal humerus fracture Anesthesia: Gen. Surgeon: Prince Purdy Architectural Renderer(s): TRACY Winston PA-C The surgical procedure was assisted by my physician salon shampoo assistant. My P.A. presence was necessary throughout this case for the manipulation and positioning of the surgical extremity. My P.A. was assisting me throughout the duration of this procedure. The skill set of a physician salon shampoo assistant was medically necessary to complete this procedure. During the surgical case the rn surgical pcu was working at the back table and the physician salon shampoo assistant was directly assisting me. Operation and Findings: Patient was seen and evaluated preoperatively. Treatment options were discussed regarding distal humerus fracture including surgical and nonsurgical treatments. Patient had 2 small puncture wounds consistent with an open fracture. She was initially scheduled for surgery yesterday but was not cleared medically secondary to liver failure and alcohol-related cirrhosis. Patient was transfused platelets overnight but still had is anemic and has low platelet count. Because of the open nature of the injury, surgery cannot be postponed further. After detailed discussion of risk and benefits of procedure patient wishes to proceed with surgery. Risks of surgery include bleeding, infection, nonunion, malunion, painful hardware, loss of motion of shoulder and elbow, weakness and numbness of arm, ulnar nerve injury as well as medical competitions including blood clots, stroke, heart attack, and . Patient was brought to operating room and placed on the OR table. GETA was administered by anesthesiologist. Patient was positioned in lateral decubitus position. Extremities were well-padded. Axillary roll was placed. Operative arm and shoulder were prepped with alcohol followed by Hibiclens and draped usual sterile fashion. Timeout procedure was performed. IV antibiotics were given prior to incision. A standard posterior approach was utilized. Subcutaneous tissues was dissected with Bovie. The lateral border of the triceps was elevated off of the distal humerus. Fracture site was visualized. Next, the ulnar nerve was identified and protected throughout the procedure. The nerve was intact. At this point attention was turned to irrigation debridement of the fracture. One of the traumatic laceration was incorporated into this incision. The edges of the bone were cleaned with curettes. Overall the wound. We healthy. There is no visible gross contamination. Soft tissue and bone were thoroughly irrigated with sterile saline with antibiotics. Next, attention was turned towards fracture reduction. The lateral fracture fragment was reduced first. This fragment was manipulated and keyed into anatomic alignment. K wires were used to hold provisional fixation. Next, The fracture was identified along the medial distal humerus. Soft tissue was removed from the fracture site. Fracture site was cleaned with curettes. At this point the fracture was reduced using fracture tenaculums. Multiplanar fluoroscopy confirmed excellent of fracture. Synthes distal humerus plates were selected. The medial plate was provisionally held the bone with K wires. 3.5 cortical screws were placed to compress plate to bone. Multiple 2.7 locking screws were placed distally. Care was taken to keep screws from penetrating the articular surface. Multiple screws were placed in each side of the fracture. All screws were predrilled and premeasured for appropriate length. Next the lateral plate was placed along the posterior lateral humerus. Plate was provisionally held to bone with K wires. 3.5 cortical screws were used to compress plate to bone. Additional 2.7 locking screws were placed distally. K wires were removed. Final fluoroscopy revealed excellent alignment of fracture with well-placed hardware. Incision was thoroughly irrigated. Fascia was closed with #1 Vicryl, subcutaneous tissues closed with 3 -0 Vicryl, and skin was closed with nabil. Sterile dressings were applied. Needle and sponge counts were correct. Patient was placed into a sling, and then transferred to recovery room in stable condition Prince Purdy MD Dec 12, 2016 11:23
--- NOTE | 2016-12-12 11:23 | PD.OP ---
cc: Prince Purdy MD Operative Report Date of Surgery: Dec 12, 2016 Preoperative Diagnosis: Displaced open left humerus supracondylar intra-articular fracture Postoperative Diagnosis: Procedure: Irrigation and debridement of open left distal humerus fracture, open reduction internal fixation left supracondylar distal humerus fracture Anesthesia: Gen. Surgeon: Prince Purdy Ct Scan Technologist(s): TRACY Winston PA-C The surgical procedure was assisted by my physician assistant director of residence life. My P.A. presence was necessary throughout this case for the manipulation and positioning of the surgical extremity. My P.A. was assisting me throughout the duration of this procedure. The skill set of a physician assistant director of residence life was medically necessary to complete this procedure. During the surgical case the medical surgical tech was working at the back table and the physician assistant director of residence life was directly assisting me. Operation and Findings: Patient was seen and evaluated preoperatively. Treatment options were discussed regarding distal humerus fracture including surgical and nonsurgical treatments. Patient had 2 small puncture wounds consistent with an open fracture. She was initially scheduled for surgery yesterday but was not cleared medically secondary to liver failure and alcohol-related cirrhosis. Patient was transfused platelets overnight but still had is anemic and has low platelet count. Because of the open nature of the injury, surgery cannot be postponed further. After detailed discussion of risk and benefits of procedure patient wishes to proceed with surgery. Risks of surgery include bleeding, infection, nonunion, malunion, painful hardware, loss of motion of shoulder and elbow, weakness and numbness of arm, ulnar nerve injury as well as medical competitions including blood clots, stroke, heart attack, and . Patient was brought to operating room and placed on the OR table. GETA was administered by anesthesiologist. Patient was positioned in lateral decubitus position. Extremities were well-padded. Axillary roll was placed. Operative arm and shoulder were prepped with alcohol followed by Hibiclens and draped usual sterile fashion. Timeout procedure was performed. IV antibiotics were given prior to incision. A standard posterior approach was utilized. Subcutaneous tissues was dissected with Bovie. The lateral border of the triceps was elevated off of the distal humerus. Fracture site was visualized. Next, the ulnar nerve was identified and protected throughout the procedure. The nerve was intact. At this point attention was turned to irrigation debridement of the fracture. One of the traumatic laceration was incorporated into this incision. The edges of the bone were cleaned with curettes. Overall the wound. We healthy. There is no visible gross contamination. Soft tissue and bone were thoroughly irrigated with sterile saline with antibiotics. Next, attention was turned towards fracture reduction. The lateral fracture fragment was reduced first. This fragment was manipulated and keyed into anatomic alignment. K wires were used to hold provisional fixation. Next, The fracture was identified along the medial distal humerus. Soft tissue was removed from the fracture site. Fracture site was cleaned with curettes. At this point the fracture was reduced using fracture tenaculums. Multiplanar fluoroscopy confirmed excellent of fracture. Synthes distal humerus plates were selected. The medial plate was provisionally held the bone with K wires. 3.5 cortical screws were placed to compress plate to bone. Multiple 2.7 locking screws were placed distally. Care was taken to keep screws from penetrating the articular surface. Multiple screws were placed in each side of the fracture. All screws were predrilled and premeasured for appropriate length. Next the lateral plate was placed along the posterior lateral humerus. Plate was provisionally held to bone with K wires. 3.5 cortical screws were used to compress plate to bone. Additional 2.7 locking screws were placed distally. K wires were removed. Final fluoroscopy revealed excellent alignment of fracture with well-placed hardware. Incision was thoroughly irrigated. Fascia was closed with #1 Vicryl, subcutaneous tissues closed with 3 -0 Vicryl, and skin was closed with nabil. Sterile dressings were applied. Needle and sponge counts were correct. Patient was placed into a sling, and then transferred to recovery room in stable condition Prince Purdy MD Dec 12, 2016 11:23
[2016-12-12] MEDS ORDERED: Post-op Orders (for Pharmacy) MISC XX ONE (11:30)
--- NOTE | 2016-12-12 11:45 | RADRPT ---
EXAM DATE/TIME: 12/12/2016 11:08 [facility] COMPARISON: ELBOW LEFT LIMITED (AP & LAT), December 10, 2016, 23:14. INDICATIONS : Post-op ORIF left distal humerus fracture. MEDICAL HISTORY : None. SURGICAL HISTORY : None. ENCOUNTER: Subsequent ACUITY: 3 days PAIN SCORE: Non-responsive. LOCATION: Left upper extremity FINDINGS: Status post internal fixation of a severely comminuted fracture involving the distal humerus. There a ppears to be good position and alignment of the fracture fragments. The hardware is grossly intact. CONCLUSION: Good position and alignment on this postoperative study. Magen Hill MD on December 12, 2016 at 11:43 Board Certified Radiologist. This report was verified electronically.
[2016-12-12] MEDS ORDERED: PROPOFOL 1000 MG/100 ML INJ 100 ML ONE (12:14)
[2016-12-12] MEDS ORDERED: DO NOT ADM ANY ANTICOAGULANT DRUGS PRN (12:30)
[2016-12-12] MEDS ORDERED: MIDAZOLAM HCL 2 MG/2 ML VIAL ONE (12:31)
--- NOTE | 2016-12-12 13:37 | RADRPT ---
EXAM DATE/TIME: 12/12/2016 12:57 [facility] COMPARISON: CHEST SINGLE AP, December 07, 2015, 21:52. INDICATIONS : Post intubation. MEDICAL HISTORY : Cirrhosis. Hernia, umbilical. Chronic obstructive pulmonary disease. SURGICAL HISTORY : Right hip. Left elbow. Chest tubes. ENCOUNTER: Subsequent ACUITY: 1 week PAIN SCORE: 10/10 LOCATION: chest FINDINGS: Interval placement of ETT with tip at the level of the clavicles. Redemonstration of mild bibasilar a irspace disease and diffuse interstitial prominence similar to prior exam. Cardiomediastinal contours are stable. Remainder of exam is unchanged. CONCLUSION: 1. ETT in good position. 2. Mild bibasilar atelectasis. Robbie Correia MD on December 12, 2016 at 13:32 Board Certified Radiologist. This report was verified electronically.
[2016-12-12 14:05] LABS: AUTOMATED NEUTROPHIL # 2.4 TH/MM3 (1.8-7.7); BASOPHIL % 0.3 % (0.0-2.0); EOSINOPHIL % 0.4 % (0.0-4.0); LYMPH % 11.7 % (9.0-44.0); LYMPHOCYTE # 0.4 TH/MM3 (1.0-4.8); MEAN CORPUSCULAR HEMOGLOBIN 35.6 PG (27.0-34.0); MEAN CORPUSCULAR HGB CONC 34.9 % (32.0-36.0); MEAN PLATELET VOLUME 8.3 FL (7.0-11.0); MONO % 10.8 % (0.0-8.0); MONOCYTE # 0.3 TH/MM3 (0-0.9); NEUT % 76.8 % (16.0-70.0); RED BLOOD COUNT 1.76 MIL/MM3 (4.00-5.30); RED CELL DISTRIBUTION WIDTH 14.4 % (11.6-17.2); WHITE BLOOD COUNT 3.2 TH/MM3 (4.0-11.0)
[2016-12-12 14:11] LABS: HEMOGLOBIN 6.3 GM/DL (11.6-15.3)
[2016-12-12 14:12] LABS: PLATELET COUNT 19 TH/MM3 (150-450)
[2016-12-12 14:37] LABS: BANDS 4 % (0-6); LYMPHOCYTES 6 % (9-44); MONOCYTES 6 % (0-8); NEUTROPHIL # MANUAL DIFF 2.8 TH/MM3 (1.8-7.7); POLYS (SEG NEUTROPHILS) 83 % (16-70)
[2016-12-12] MEDS ORDERED: ceFAZolin 2 GM PREMIX 50 ML ONE (14:44)
[2016-12-12] MEDS ORDERED: LORazepam 2 MG/ML VIAL ONE (15:11)
[2016-12-12] MEDS ORDERED: LORazepam 2 MG/ML VIAL IV ONE (15:45)
[2016-12-12] MEDS: PROPOFOL 1000 MG/100 ML IV PRN (15:55)
[2016-12-12] MEDS: SODIUM CHLOR 0.9% 1000 ML INJ 1,000 ML IV SCH (16:43)
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
[2016-12-12] MEDS ORDERED: CYANOCOBALAMIN 1000 MCG/ML VIAL SQ ONE (19:00)
[2016-12-12] MEDS: PROPOFOL 1000 MG/100 ML INJ 100 ML IV PRN (20:20)
[2016-12-12] MEDS: MORPHINE SULFATE 4 MG/ML INJ IV PUSH PRN (20:20)
[2016-12-12] MEDS: CHLORHEXIDINE 0.12% (ORAL KIT) 15 ML CUP MT SCH (20:22)
[2016-12-12] MEDS: SODIUM CHLORIDE 0.9% FLUSH 10 ML FLUSH IV FLUSH SCH (20:22)
[2016-12-12] MEDS: CALCIUM/VITAMIN D 250 MG/125 U TAB PO SCH (20:25)
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
[2016-12-12 23:17] LABS: MEAN CELL VOLUME 100.1 FL (80.0-100.0); MEAN CORPUSCULAR HEMOGLOBIN 35.5 PG (27.0-34.0); MEAN CORPUSCULAR HGB CONC 35.4 % (32.0-36.0); MEAN PLATELET VOLUME 11.2 FL (7.0-11.0); PLATELET COUNT 25 TH/MM3 (150-450); RED BLOOD COUNT 1.95 MIL/MM3 (4.00-5.30); RED CELL DISTRIBUTION WIDTH 15.2 % (11.6-17.2); WHITE BLOOD COUNT 2.8 TH/MM3 (4.0-11.0)
[2016-12-12 23:37] LABS: HEMOGLOBIN 6.9 GM/DL (11.6-15.3)
[2016-12-12 23:38] LABS: HEMATOCRIT 19.5 % (35.0-46.0)
[2016-12-13] VITALS (35 sets, daily range): BP systolic 127–220; BP diastolic 59–89; PULSE 63–102; RESP 12–41; TEMP 98–98.2; O2SAT 96–100
[2016-12-13 01:08] LABS: BANDS 19 % (0-6); LYMPHOCYTES 25 % (9-44); MONOCYTES 7 % (0-8); NEUTROPHIL # MANUAL DIFF 1.9 TH/MM3 (1.8-7.7); POLYS (SEG NEUTROPHILS) 48 % (16-70)
[2016-12-13] MEDS: ceFAZolin 2 GM PREMIX 50 ML IV SCH ×3 (02:56→17:15)
[2016-12-13] MEDS: GENTAMICIN 80 MG PREMIX 100 ML IV SCH ×2 (02:57→06:38)
[2016-12-13] MEDS: PROPOFOL 1000 MG/100 ML INJ 100 ML IV PRN ×4 (02:57→19:13)
[2016-12-13] MEDS: SODIUM CHLOR 0.9% 1000 ML INJ 1,000 ML IV SCH ×2 (02:58→16:44)
[2016-12-13] MEDS: MORPHINE SULFATE 4 MG/ML INJ IV PUSH PRN ×3 (03:01→13:12)
[2016-12-13] MEDS: THIAMINE HCL 100 MG TAB PO SCH (09:40)
[2016-12-13] MEDS: PROPOFOL 1000 MG/100 ML IV PRN (09:40)
[2016-12-13] MEDS: CALCIUM/VITAMIN D 250 MG/125 U TAB PO SCH ×2 (09:40→19:13)
[2016-12-13] MEDS: FOLIC ACID 1 MG TAB PO SCH (09:41)
[2016-12-13] MEDS: SODIUM CHLORIDE 0.9% FLUSH 10 ML FLUSH IV FLUSH SCH ×2 (09:41→19:13)
[2016-12-13] MEDS: CHLORHEXIDINE 0.12% (ORAL KIT) 15 ML CUP MT SCH ×2 (09:41→19:14)
[2016-12-13] MEDS: CHOLECALCIFEROL (VIT D3) 1000 UNIT TAB PO SCH (09:41)
[2016-12-13] MEDS ORDERED: PNEUMOCOCCAL POLYVALENT INJ 25 MCG/0.5 ML SYR IM ONE (10:00)
[2016-12-13] MEDS ORDERED: INFLUENZA VIRUS VACCINE (QUADRIVALENT) 0.5 ML SYR IM ONE (10:00)
[2016-12-13 12:20] LABS: AUTOMATED NEUTROPHIL # 1.9 TH/MM3 (1.8-7.7); BASOPHIL % 0.6 % (0.0-2.0); EOSINOPHIL # 0.1 TH/MM3 (0-0.4); EOSINOPHIL % 2.6 % (0.0-4.0); HEMATOCRIT 27.7 % (35.0-46.0); HEMOGLOBIN 9.8 GM/DL (11.6-15.3); LYMPH % 19.2 % (9.0-44.0); LYMPHOCYTE # 0.5 TH/MM3 (1.0-4.8); MEAN CELL VOLUME 91.6 FL (80.0-100.0); MEAN CORPUSCULAR HEMOGLOBIN 32.4 PG (27.0-34.0); MEAN CORPUSCULAR HGB CONC 35.4 % (32.0-36.0); MEAN PLATELET VOLUME 9.5 FL (7.0-11.0); MONOCYTE # 0.3 TH/MM3 (0-0.9); NEUT % 67.6 % (16.0-70.0); PLATELET COUNT 26 TH/MM3 (150-450); RED BLOOD COUNT 3.02 MIL/MM3 (4.00-5.30); RED CELL DISTRIBUTION WIDTH 20.1 % (11.6-17.2); WHITE BLOOD COUNT 2.8 TH/MM3 (4.0-11.0)
--- NOTE | 2016-12-13 12:27 | PD.ONC.PN ---
Subjective Subjective Remarks Afebrile overnight. Remains intubated, sedated. Received pRBC and platelets this AM. Objective Data Date Time Temp Pulse Resp B/P (MAP) Pulse Ox O2 Delivery O2 Flow Rate FiO2 12/13/16 11:20 69 14 198/84 (122) 98 12/13/16 11:18 70 17 193/77 (115) 98 12/13/16 11:00 69 15 181/81 (114) 99 12/13/16 10:46 71 18 173/82 (112) 99 12/13/16 10:40 93 21 220/82 (128) 100 12/13/16 10:24 86 19 195/83 (120) 100 12/13/16 10:10 84 19 194/80 (118) 100 12/13/16 10:01 83 22 180/85 (116) 100 12/13/16 10:00 83 23 100 12/13/16 09:00 96 41 178/89 (118) 100 12/13/16 08:31 97 40 12/13/16 08:00 40 12/13/16 08:00 77 29 154/71 (98) 96 12/13/16 04:32 99 40 12/13/16 04:00 40 12/13/16 04:00 98.0 74 12 162/67 (98) 99 12/13/16 00:14 100 40 12/13/16 00:00 40 12/13/16 00:00 98.0 68 15 127/59 (81) 99 12/12/16 21:02 100 40 12/12/16 20:00 98.2 77 16 150/65 (93) 100 12/12/16 20:00 40 12/12/16 17:25 96.5 72 15 100 12/12/16 16:13 99 40 12/12/16 16:00 100 100 12/12/16 15:45 98.8 68 15 138/69 (92) 100 Mechanical Ventilator 40 12/12/16 15:30 65 15 139/63 (88) 100 Mechanical Ventilator 40 12/12/16 15:15 65 14 143/62 (89) 100 Mechanical Ventilator 40 12/12/16 15:15 98.4 65 15 148/61 100 12/12/16 15:15 98.4 65 15 148/61 100 12/12/16 15:00 98.5 62 13 128/62 100 12/12/16 15:00 64 14 148/61 (90) 100 Mechanical Ventilator 40 12/12/16 14:45 65 14 138/62 (87) 100 Mechanical Ventilator 40 12/12/16 14:30 64 14 143/65 (91) 100 Mechanical Ventilator 40 12/12/16 14:15 63 13 131/63 (85) 100 Mechanical Ventilator 40 12/12/16 14:00 62 13 149/64 (92) 100 Mechanical Ventilator 40 12/12/16 13:45 63 13 157/70 (99) 100 Mechanical Ventilator 40 12/12/16 13:30 98.2 65 13 149/65 (93) 100 Mechanical Ventilator 40 12/12/16 13:15 64 12 141/61 (87) 100 Mechanical Ventilator 40 12/12/16 13:00 63 12 116/58 (77) 100 Mechanical Ventilator 40 12/12/16 12:45 66 12 109/57 (74) 100 Mechanical Ventilator 40 12/12/16 12:30 40 12/12/16 12:30 99.0 69 12 132/55 (80) 100 Mechanical Ventilator 40 12/13/16 12/13/16 12/13/16 07:00 15:00 23:00 Intake Total 1755 ml 100 ml Output Total 800 ml Balance 955 ml 100 ml Result Diagram: 12/12/160 12/12/16 0627 Laboratory Results Laboratory Tests Test 12/12/16 13:52 12/12/16 22:30 12/13/16 11:55 White Blood Count 3.2 TH/MM3 2.8 TH/MM3 Red Blood Count 1.76 MIL/MM3 1.95 MIL/MM3 Hemoglobin 6.3 GM/DL 6.9 GM/DL Hematocrit 18.0 % 19.5 % Mean Corpuscular Volume 102.0 FL 100.1 FL Mean Corpuscular Hemoglobin 35.6 PG 35.5 PG Mean Corpuscular Hemoglobin Concent 34.9 % 35.4 % Red Cell Distribution Width 14.4 % 15.2 % Platelet Count 19 TH/MM3 25 TH/MM3 Mean Platelet Volume 8.3 FL 11.2 FL Neutrophils (%) (Auto) 76.8 % Lymphocytes (%) (Auto) 11.7 % Monocytes (%) (Auto) 10.8 % Eosinophils (%) (Auto) 0.4 % Basophils (%) (Auto) 0.3 % Neutrophils # (Auto) 2.4 TH/MM3 Lymphocytes # (Auto) 0.4 TH/MM3 Monocytes # (Auto) 0.3 TH/MM3 Eosinophils # (Auto) 0.0 TH/MM3 Basophils # (Auto) 0.0 TH/MM3 CBC Comment AUTO DIFF AUTO DIFF Differential Total Cells Counted 100 100 Neutrophils % (Manual) 83 % 48 % Band Neutrophils % 4 % 19 % Lymphocytes % 6 % 25 % Monocytes % 6 % 7 % Eosinophils % 1 % 1 % Neutrophils # (Manual) 2.8 TH/MM3 1.9 TH/MM3 Differential Comment FINAL DIFF MANUAL FINAL DIFF MANUAL Platelet Estimate LOW LOW Platelet Morphology Comment NORMAL ENLARGED Administered Medications Medications (Trade) Dose Ordered Sig/Monik Route PRN Reason Start Time Stop Time Status Last Admin Dose Admin Thiamine HCl (Vitamin B1) 100 mg DAILY PO 12/11/16 09:00 12/13/16 09:40 Sodium Chloride (NS Flush) 2 ml BID IV FLUSH 12/11/16 09:00 12/13/16 09:41 Ondansetron HCl (Zofran Inj) 4 mg Q6H PRN IVP NAUSEA OR VOMITING 12/11/16 03:15 12/12/16 06:09 Oxycodone HCl (Roxicodone) 10 mg Q4H PRN PO PAIN SCALE 6 TO 10 12/11/16 04:30 12/12/16 00:10 Morphine Sulfate (Morphine Inj) 4 mg Q3H PRN IV PUSH BREAKTHROUGH PAIN 12/11/16 04:30 12/13/16 10:44 Lorazepam (Ativan Inj) 2 mg Q2H PRN IV PUSH CIWA 11-12/11/16 13:45 12/13/16 03:02 Cefazolin Sodium/ Dextrose 50 ml @ 100 mls/hr Q8H IV 12/12/16 18:00 12/14/16 10:29 12/13/16 10:44 Calcium/Vitamin D (Oscal-D 250-125) 250 mg Q12HR PO 12/12/16 21:00 12/13/16 09:40 Cholecalciferol (Vitamin D3) 1,000 units DAILY PO 12/13/16 09:00 12/13/16 09:41 Sodium Chloride 1,000 ml @ 84 mls/hr [id number] IV 12/12/16 16:15 12/13/16 02:58 Chlorhexidine Gluconate (Peridex 0.12% Liq) 15 ml BID@08,20 MT 12/12/16 20:00 12/13/16 09:41 Propofol 100 ml @ 2.25 mls/hr TITRATE PRN IV SEDATION 12/12/16 17:15 12/13/16 02:57 Folic Acid (Folate) 1 mg DAILY PO 12/13/16 09:00 12/13/16 09:41 Objective Remarks GENERAL: Intubated, sedated female supine in bed. SKIN: Warm and dry. ecchymoses along right neck and chest wall. HEAD: Normocephalic. EYES: No injection or drainage. NECK: Supple, trachea midline. CARDIOVASCULAR: +S1/S2 RESPIRATORY: anterior quinn clear. on mechanical ventilation. GASTROINTESTINAL: Abdomen nondistended. EXTREMITIES: No cyanosis. left arm in long-arm splint. NEUROLOGICAL: intubated, sedated Assessment/Plan Problem List: (1) Thrombocythemia ICD Codes: D47.3 - Thrombocythemia Status: Chronic Plan: --has evidence of chronic thrombocytopenia partially from the hypersplenism and probably from the liver disease and the deficiency in thrombopoietin. -- will optimize her bone marrow in its effort for hematopoiesis with B12 and folic acid --give Supportive transfusion to keep the hemoglobin at least at 7. --hematoma will be managed conservatively. anticipate that the swelling will decrease in time. (2) Cirrhosis ICD Codes: K74.60 - Cirrhosis Status: Chronic Plan: --alcoholic liver disease has led to cirrhosis. --has evidence of portal hypertension from previous imaging study. Assessment 66-year-old woman with a history of alcoholic cirrhosis, alcoholism, hepatitis C. She has had previous falls and fracture associated with drinking. No history was able to be obtained from the patient as she is intubated and sedated post her surgery. History was obtained through review of the electronic medical records. She presented to the emergency room on 12/10/2016 status post a fall. She was drinking alcohol, lost her balance, tripped on her flip-flops and fell on her left elbow. X-rays of the elbow shows a complex left elbow fracture. Dr. Parnell performed an open reduction internal fixation of the left supracondylar distal humerus fracture. Her course was complicated by hematoma formation during surgery of the left neck and chest wall. There was extravasation of transfused blood. The patient was left intubated on mechanical ventilatory support. She was transferred to the ICU under the care of Dr. Rodrigez. h/o Alcoholic liver disease, Hepatosplenomegaly. Esophageal varices, portal hypertension, cholelithiasis Plan 1. monitor CBC, coags 2. transfuse as needed. Attending Statement The exam, history, and the medical decision-making described in the above note were completed with the assistance of the mid-level provider. I reviewed and agree with the findings presented. I attest that I had a [id number] encounter with the patient on the same day, and personally performed and documented my assessment and findings in the medical record. Pt seen and examined. Still sedated, intubated. Hematoma R neck soft, tracking down. Last CBC hgb 9.8, platelet 26K- with stable thrombocytopenia, no additional transfusion needed. Monitor hgb. Bleeding appear to have stopped. Ice to R neck hematoma. Thrombocytopenia chronic due to liver disease. Supportive transfusion. Cortney Caruso Dec 13, 2016 12:27 Migdalia Moreno MD Dec 13, 2016 19:38
[2016-12-13 12:28] LABS: INTERNATIONAL NORMALIZED RATIO 1.2 RATIO
[2016-12-13 12:50] LABS: ALBUMIN 2.7 GM/DL (3.4-5.0); AST (GOT) 31 U/L (15-37); BICARBONATE 30.1 MEQ/L (21.0-32.0); BLOOD UREA NITROGEN 10 MG/DL (7-18); CHLORIDE 100 MEQ/L (98-107); CREATININE 0.68 MG/DL (0.50-1.00); GLOMERULAR FILTRATION RATE 87 ML/MIN (>89); GLUCOSE,RANDOM 98 MG/DL (74-106); SODIUM (NA) 135 MEQ/L (136-145)
[2016-12-13 12:57] LABS: ALKALINE PHOSPHATASE 87 U/L (45-117); ALT (GPT) 18 U/L (10-53); TOTAL BILIRUBIN ADULT 4.6 MG/DL (0.2-1.0); TOTAL PROTEIN 6.7 GM/DL (6.4-8.2)
[2016-12-13] MEDS ORDERED: hydrALAZINE HCL 20 MG/ML VIAL ONE (13:44)
--- NOTE | 2016-12-13 14:57 | PD.ORT.PN ---
Subjective Subjective Remarks Intubated in intensive care unit. Patient is stable Objective Vitals Vital Signs Date Time Temp Pulse Resp B/P (MAP) Pulse Ox O2 Delivery O2 Flow Rate FiO2 12/13/16 14:00 77 20 151/66 (94) 98 12/13/16 13:55 72 18 158/66 (96) 99 12/13/16 13:49 63 17 194/77 (116) 99 12/13/16 13:35 72 18 207/85 (125) 99 12/13/16 13:33 97 22 204/80 (121) 100 12/13/16 13:29 81 18 185/77 (113) 99 12/13/16 13:14 65 15 193/78 (116) 99 12/13/16 13:13 68 15 199/81 (120) 99 12/13/16 13:09 67 17 201/83 (122) 100 12/13/16 13:00 71 16 200/84 (122) 100 12/13/16 12:58 100 40 12/13/16 12:33 65 12 198/79 (118) 100 12/13/16 12:22 63 17 183/74 (110) 99 12/13/16 12:00 66 13 187/78 (114) 99 12/13/16 12:00 40 12/13/16 11:20 69 14 198/84 (122) 98 12/13/16 11:18 70 17 193/77 (115) 98 12/13/16 11:00 69 15 181/81 (114) 99 12/13/16 10:46 71 18 173/82 (112) 99 12/13/16 10:40 93 21 220/82 (128) 100 12/13/16 10:24 86 19 195/83 (120) 100 12/13/16 10:10 84 19 194/80 (118) 100 12/13/16 10:01 83 22 180/85 (116) 100 12/13/16 10:00 83 23 100 12/13/16 09:00 96 41 178/89 (118) 100 12/13/16 08:31 97 40 12/13/16 08:00 40 12/13/16 08:00 77 29 154/71 (98) 96 12/13/16 04:32 99 40 12/13/16 04:00 40 12/13/16 04:00 98.0 74 12 162/67 (98) 99 12/13/16 00:14 100 40 12/13/16 00:00 40 12/13/16 00:00 98.0 68 15 127/59 (81) 99 12/12/16 21:02 100 40 12/12/16 20:00 98.2 77 16 150/65 (93) 100 12/12/16 20:00 40 12/12/16 17:25 96.5 72 15 100 12/12/16 16:13 99 40 12/12/16 16:00 100 100 12/12/16 15:45 98.8 68 15 138/69 (92) 100 Mechanical Ventilator 40 12/12/16 15:30 65 15 139/63 (88) 100 Mechanical Ventilator 40 12/12/16 15:15 65 14 143/62 (89) 100 Mechanical Ventilator 40 12/12/16 15:15 98.4 65 15 148/61 100 12/12/16 15:15 98.4 65 15 148/61 100 12/12/16 15:00 98.5 62 13 128/62 100 12/12/16 15:00 64 14 148/61 (90) 100 Mechanical Ventilator 40 I/O 12/12/16 12/12/16 12/12/16 12/13/16 12/13/16 12/13/16 07:00 15:00 23:00 07:00 15:00 23:00 Intake Total 1146 ml 4204 ml 550 ml 1755 ml 550 ml Output Total 400 ml 700 ml 800 ml Balance 1146 ml 3804 ml -150 ml 955 ml 550 ml Intake Oral 480 ml IV Total 100 ml 200 ml 150 ml Packed Cells 1450 ml 400 ml 800 ml 400 ml Platelets 626 ml 1234 ml 575 ml Blood Product IV Normal Saline Flush 40 ml 520 ml 50 ml 60 ml Other 1000 ml 120 ml Output Urine Total 700 ml 800 ml Estimated Blood Loss 400 ml # Voids 2 # Bowel Movements 0 0 Result Diagram: 12/13/16 1155 12/13/16 1155 Other Results Laboratory Tests Test 12/13/16 11:55 Prothromb Time International Ratio 1.2 RATIO Prothrombin Time 13.0 SEC (9.8-11.6) Imaging Last 72 hours Impressions Elbow X-Ray 12/12/16 0000 Signed Impressions: Service Date/Time: December 11:08 - CONCLUSION: Good position and alignment on this postoperative study. Magen Hill MD Chest X-Ray 12/12/16 0000 Signed Impressions: Service Date/Time: December 12:57 - CONCLUSION: 1. ETT in good position. 2. Mild bibasilar atelectasis. Robbie Correia MD Objective Remarks Left upper extremity: Long arm splint in place. Splint is clean dry and intact. Distally she has good capillary refills and tissue perfusion. Patient is sedated and is unable to assess sensation or muscular movement Assessment & Plan Assessment and Plan 1) Left distal Humerus Fx ORIF POD 1 Nonweightbearing left upper extremity Maintain splint Sling when out of bed Continued medical management in intensive care unit Follow-up x-rays will be performed in approximately 14 days Jatin Castorena Jr. Dec 13, 2016 14:57
[2016-12-13] MEDS: hydrALAZINE HCL 20 MG/ML VIAL IV PRN (19:12)
--- NOTE | 2016-12-13 20:19 | HHI.CCPN ---
Subjective Remarks/Hospital Course Hospital Course: 66-year-old female with a medical history significant for alcoholic cirrhosis, chronic alcoholism, hepatitis C who was admitted on 12/11 after a fall with open left elbow fracture. Patient was evaluated by orthopedics. She was noted to be thrombocytopenic. She received 3 units pheresed platelet transfusions yesterday and underwent ORIF for left humerus supracondylar intra-articular fracture by Dr. Parnell under general anesthesia. Patient had an external jugular Angiocath placed preoperatively however this line infiltrated during surgery and patient was noted to have significant hematoma involving the left neck and chest wall partially from extravasation of transfused blood. It was elected to leave patient intubated due to concern regarding airway compromise from the hematoma. I was contacted by Dr. Guadarrama from anesthesia for critical care consult. When I evaluated the patient in PACU she was sedated with propofol, arousable, orally intubated on mechanical ventilation. History was obtained by reviewing records and discussion with Dr. Guadarrama. subjective: 12/13: remains intubated and sedated. some decrease in edema/hematoma. will keep intubated another 24h for swelling to decrease. Objective Vital Signs Date Time Temp Pulse Resp B/P (MAP) Pulse Ox O2 Delivery O2 Flow Rate FiO2 12/13/16 19:51 98 40 12/13/16 16:15 73 15 161/69 (99) 12/13/16 04:00 98.0 12/12/16 15:45 Mechanical Ventilator Intake and Output 12/13/16 12/13/16 12/14/16 08:00 16:00 00:00 Intake Total 1755 ml 1490 ml 100 ml Output Total 800 ml 2200 ml Balance 955 ml 1490 ml -2100 ml Result Diagram: 12/13/16 1155 12/13/16 1155 Imaging Last Impressions Elbow X-Ray 12/12/16 0000 Signed Impressions: Service Date/Time: December 11:08 - CONCLUSION: Good position and alignment on this postoperative study. Magen Hill MD Chest X-Ray 12/12/16 0000 Signed Impressions: Service Date/Time: December 12:57 - CONCLUSION: 1. ETT in good position. 2. Mild bibasilar atelectasis. Robbie Correia MD Objective Remarks HEENT/ Neuro: Sedated, orally intubated, Pallor present, no icterus, tongue/ mucosa moist Neck: Significant hematoma noted over right side of neck extending down over her upper chest wall, decreased from yesterday. Trachea still midline. Chest/Pulm: on mech vent, good air entry bilaterally, no wheezing or crackles CVS: regular rate and rhythm. GI/abdomen: soft, nontender, bowel sounds sluggish Extremities: warm bilaterally, no edema. Graeme wrap around surgical site involving left elbow. FREDI drain in place. A/P Assessment and Plan 66-year-old female with: Acute respiratory failure on mechanical ventilation Hematoma on left side of neck Alcohol-induced liver cirrhosis Chronic alcoholism Hepatitis C Left humerus open supracondylar intra-articular fracture status post ORIF Acute blood loss anemia Thrombocytopenia most likely secondary to liver cirrhosis Suspect hypersplenism Plan: Neuro: Sedation with propofol. Follow neuro status. Ativan as needed to prevent alcohol withdrawal. Cardiovascular: IV hydration, watch for hypotension. Pulmonary: continue intubated overnight, some edema better, but will allow more venous drainage. hob elevated to help with decreased edema. early SBT. GI/liver: If not extubated tomorrow start tube feeds. Follow LFTs. ID: Perioperative antibiotics per orthopedics. Musculoskeletal: Status post ORIF for left humerus supracondylar fracture being followed by orthopedics. Heme: Follow CBC. 2 units PRBCs and 1 unit pheresed platelets ordered now. Transfuse to keep hemoglobin above 7 g percent and platelets greater than 20, 000. Endocrine: Watch for hyperglycemia, SSI for glycemic control as needed Prophylaxis: PPI/SCDs. No heparin in view of thrombocytopenia. Gurvinder Mohr MD Dec 13, 2016 20:19
[2016-12-13 20:58] LABS: HEMATOCRIT 28.8 % (35.0-46.0); HEMOGLOBIN 10.2 GM/DL (11.6-15.3); MEAN CELL VOLUME 91.5 FL (80.0-100.0); MEAN CORPUSCULAR HEMOGLOBIN 32.2 PG (27.0-34.0); MEAN CORPUSCULAR HGB CONC 35.2 % (32.0-36.0); MEAN PLATELET VOLUME 9.9 FL (7.0-11.0); PLATELET COUNT 29 TH/MM3 (150-450); RED BLOOD COUNT 3.15 MIL/MM3 (4.00-5.30); RED CELL DISTRIBUTION WIDTH 20.6 % (11.6-17.2); WHITE BLOOD COUNT 3.3 TH/MM3 (4.0-11.0)
[2016-12-13 21:29] LABS: LYMPHOCYTES 19 % (9-44); NEUTROPHIL # MANUAL DIFF 2.7 TH/MM3 (1.8-7.7); POLYS (SEG NEUTROPHILS) 81 % (16-70)
[2016-12-14] VITALS (18 sets, daily range): BP systolic 138–218; BP diastolic 63–105; PULSE 77–100; RESP 11–22; TEMP 97.6–98.6; O2SAT 90–100
[2016-12-14] MEDS: PROPOFOL 1000 MG/100 ML INJ 100 ML IV PRN ×2 (00:25→05:41)
[2016-12-14] MEDS: ceFAZolin 2 GM PREMIX 50 ML IV SCH ×2 (00:27→08:22)
[2016-12-14] MEDS: hydrALAZINE HCL 20 MG/ML VIAL IV PRN ×2 (02:31→09:41)
[2016-12-14] MEDS: SODIUM CHLOR 0.9% 1000 ML INJ 1,000 ML IV SCH (04:00)
[2016-12-14 06:46] LABS: HEMATOCRIT 28.2 % (35.0-46.0); HEMOGLOBIN 9.9 GM/DL (11.6-15.3); MEAN CELL VOLUME 92.1 FL (80.0-100.0); MEAN CORPUSCULAR HEMOGLOBIN 32.2 PG (27.0-34.0); MEAN CORPUSCULAR HGB CONC 34.9 % (32.0-36.0); MEAN PLATELET VOLUME 10.1 FL (7.0-11.0); PLATELET COUNT 31 TH/MM3 (150-450); RED BLOOD COUNT 3.06 MIL/MM3 (4.00-5.30); WHITE BLOOD COUNT 3.1 TH/MM3 (4.0-11.0)
[2016-12-14 07:30] LABS: INTERNATIONAL NORMALIZED RATIO 1.1 RATIO; PROTHROMBIN TIME - PATIENT 12.1 SEC (9.8-11.6)
[2016-12-14] MEDS: MORPHINE SULFATE 4 MG/ML INJ IV PUSH PRN (07:44)
[2016-12-14] MEDS: CALCIUM/VITAMIN D 250 MG/125 U TAB PO SCH ×2 (08:22→21:12)
[2016-12-14] MEDS: CHLORHEXIDINE 0.12% (ORAL KIT) 15 ML CUP MT SCH ×2 (08:22→20:00)
[2016-12-14] MEDS: CHOLECALCIFEROL (VIT D3) 1000 UNIT TAB PO SCH (08:22)
[2016-12-14] MEDS: THIAMINE HCL 100 MG TAB PO SCH (08:22)
[2016-12-14] MEDS: FOLIC ACID 1 MG TAB PO SCH (08:22)
[2016-12-14] MEDS: SODIUM CHLORIDE 0.9% FLUSH 10 ML FLUSH IV FLUSH SCH ×2 (08:24→21:12)
[2016-12-14 09:38] LABS: BANDS 1 % (0-6); LYMPHOCYTES 17 % (9-44); METAMYELOCYTES 0 % (0-1); MONOCYTES 4 % (0-8); NEUTROPHIL # MANUAL DIFF 2.3 TH/MM3 (1.8-7.7); POLYS (SEG NEUTROPHILS) 74 % (16-70)
--- NOTE | 2016-12-14 09:58 | HHI.CCPN ---
Subjective Remarks/Hospital Course Hospital Course: 66-year-old female with a medical history significant for alcoholic cirrhosis, chronic alcoholism, hepatitis C who was admitted on 12/11 after a fall with open left elbow fracture. Patient was evaluated by orthopedics. She was noted to be thrombocytopenic. She received 3 units pheresed platelet transfusions yesterday and underwent ORIF for left humerus supracondylar intra-articular fracture by Dr. Parnell under general anesthesia. Patient had an external jugular Angiocath placed preoperatively however this line infiltrated during surgery and patient was noted to have significant hematoma involving the left neck and chest wall partially from extravasation of transfused blood. It was elected to leave patient intubated due to concern regarding airway compromise from the hematoma. I was contacted by Dr. Guadarrama from anesthesia for critical care consult. When I evaluated the patient in PACU she was sedated with propofol, arousable, orally intubated on mechanical ventilation. History was obtained by reviewing records and discussion with Dr. Guadarrama. subjective: 12/13: remains intubated and sedated. some decrease in edema/hematoma. will keep intubated another 24h for swelling to decrease. 12/14: passed SBT. extubated this morning. clinically improving. platelets still low but no evidence of active bleeding. hgb stable. Objective Vital Signs Date Time Temp Pulse Resp B/P (MAP) Pulse Ox O2 Delivery O2 Flow Rate FiO2 12/14/16 07:52 97 40 12/14/16 04:00 98.1 100 20 138/63 (88) 12/12/16 15:45 Mechanical Ventilator Intake and Output 12/14/16 12/14/16 12/15/16 08:00 16:00 00:00 Intake Total 120 ml Output Total 750 ml Balance -630 ml Result Diagram: 12/14/16 0348 12/13/16 1155 Imaging Last Impressions Elbow X-Ray 12/12/16 0000 Signed Impressions: Service Date/Time: December 11:08 - CONCLUSION: Good position and alignment on this postoperative study. Magen Hill MD Chest X-Ray 12/12/16 0000 Signed Impressions: Service Date/Time: December 12:57 - CONCLUSION: 1. ETT in good position. 2. Mild bibasilar atelectasis. Robbie Correia MD Objective Remarks HEENT/ Neuro: awake, follows commands. intubated. Neck: hematoma improving over neck. trachea midline. no more mass effect. Chest/Pulm: on SBT on my first eval, + 5 second head lift, 1.2L FVC. CVS: regular rate and rhythm. GI/abdomen: soft, nontender, bowel sounds sluggish Extremities: warm bilaterally, no edema. Graeme wrap around surgical site involving left elbow. FREDI drain in place. A/P Assessment and Plan 66-year-old female with: Acute respiratory failure on mechanical ventilation - improving. Hematoma on left side of neck - improving. Alcohol-induced liver cirrhosis Chronic alcoholism Hepatitis C Left humerus open supracondylar intra-articular fracture status post ORIF Acute blood loss anemia - stable. Thrombocytopenia most likely secondary to liver cirrhosis - stable, persistent. Suspect hypersplenism Plan: Neuro: RASS goal 0. Cardiovascular: IV hydration Pulmonary: aggressive pulmonary toilet. wean o2 by nc for goal spo2 > 90%. PT consult. GI/liver: swallow eval and advance diet as tolerated. ID: Perioperative antibiotics per orthopedics. Musculoskeletal: Status post ORIF for left humerus supracondylar fracture being followed by orthopedics. PT consult. Heme: Follow CBC. Transfuse to keep hemoglobin above 7 g percent and platelets greater than 20,000. Endocrine: Watch for hyperglycemia, SSI for glycemic control as needed Prophylaxis: PPI/SCDs. No heparin in view of thrombocytopenia. If remains stable today, will transfer out of ICU. Clinically improving. Gurvinder Mohr MD Dec 14, 2016 09:58
--- NOTE | 2016-12-14 11:09 | PD.ONC.PN ---
Subjective Subjective Remarks Afebrile overnight. Remains intubated. Off sedation, Has been pulling at ET tube trying to remove it. Per nurse no bleeding. Objective Data Date Time Temp Pulse Resp B/P (MAP) Pulse Ox O2 Delivery O2 Flow Rate FiO2 12/14/16 10:00 100 22 96 12/14/16 09:58 97 22 138/91 (107) 97 12/14/16 09:50 97 Nasal Cannula 2.00 12/14/16 09:45 88 19 198/77 (117) 100 12/14/16 09:44 88 15 208/85 (126) 100 12/14/16 09:42 86 11 200/81 (120) 99 12/14/16 09:26 98 14 218/95 (136) 100 12/14/16 09:20 Nasal Cannula 40 12/14/16 08:00 40 12/14/16 08:00 87 15 147/69 (95) 98 12/14/16 07:52 97 40 12/14/16 04:00 40 12/14/16 04:00 98.1 100 20 138/63 (88) 98 12/14/16 03:41 98 40 12/14/16 00:00 98.0 85 20 165/69 (101) 98 12/14/16 00:00 40 12/13/16 23:51 98 40 12/13/16 20:00 98.2 102 18 134/63 (86) 97 12/13/16 20:00 40 12/13/16 19:51 98 40 12/13/16 16:15 73 15 161/69 (99) 99 12/13/16 16:00 73 15 158/66 (96) 99 12/13/16 16:00 40 12/13/16 14:00 77 20 151/66 (94) 98 12/13/16 13:55 72 18 158/66 (96) 99 12/13/16 13:49 63 17 194/77 (116) 99 12/13/16 13:35 72 18 207/85 (125) 99 12/13/16 13:33 97 22 204/80 (121) 100 12/13/16 13:29 81 18 185/77 (113) 99 12/13/16 13:14 65 15 193/78 (116) 99 12/13/16 13:13 68 15 199/81 (120) 99 12/13/16 13:09 67 17 201/83 (122) 100 12/13/16 13:00 71 16 200/84 (122) 100 12/13/16 12:58 100 40 12/13/16 12:33 65 12 198/79 (118) 100 12/13/16 12:22 63 17 183/74 (110) 99 12/13/16 12:00 66 13 187/78 (114) 99 12/13/16 12:00 40 12/13/16 11:20 69 14 198/84 (122) 98 12/13/16 11:18 70 17 193/77 (115) 98 12/14/16 12/14/16 12/14/16 07:00 15:00 23:00 Intake Total 120 ml 50 ml Output Total 750 ml Balance -630 ml 50 ml Result Diagram: 12/14/16 0348 12/13/16 1155 Laboratory Results Laboratory Tests Test 12/13/16 11:55 12/13/16 20:31 12/14/16 03:48 White Blood Count 2.8 TH/MM3 3.3 TH/MM3 3.1 TH/MM3 Red Blood Count 3.02 MIL/MM3 3.15 MIL/MM3 3.06 MIL/MM3 Hemoglobin 9.8 GM/DL 10.2 GM/DL 9.9 GM/DL Hematocrit 27.7 % 28.8 % 28.2 % Mean Corpuscular Volume 91.6 FL 91.5 FL 92.1 FL Mean Corpuscular Hemoglobin 32.4 PG 32.2 PG 32.2 PG Mean Corpuscular Hemoglobin Concent 35.4 % 35.2 % 34.9 % Red Cell Distribution Width 20.1 % 20.6 % 20.0 % Platelet Count 26 TH/MM3 29 TH/MM3 31 TH/MM3 Mean Platelet Volume 9.5 FL 9.9 FL 10.1 FL Neutrophils (%) (Auto) 67.6 % Lymphocytes (%) (Auto) 19.2 % Monocytes (%) (Auto) 10.0 % Eosinophils (%) (Auto) 2.6 % Basophils (%) (Auto) 0.6 % Neutrophils # (Auto) 1.9 TH/MM3 Lymphocytes # (Auto) 0.5 TH/MM3 Monocytes # (Auto) 0.3 TH/MM3 Eosinophils # (Auto) 0.1 TH/MM3 Basophils # (Auto) 0.0 TH/MM3 CBC Comment AUTO DIFF AUTO DIFF AUTO DIFF Differential Comment AUTO DIFF CONFIRMED FINAL DIFF MANUAL FINAL DIFF MANUAL Platelet Estimate LOW LOW Platelet Morphology Comment NORMAL NORMAL Prothrombin Time 13.0 SEC 12.1 SEC Prothromb Time International Ratio 1.2 RATIO 1.1 RATIO Activated Partial Thromboplast Time 28.9 SEC 28.7 SEC Blood Urea Nitrogen 10 MG/DL Creatinine 0.68 MG/DL Random Glucose 98 MG/DL Total Protein 6.7 GM/DL Albumin 2.7 GM/DL Calcium Level 8.0 MG/DL Alkaline Phosphatase 87 U/L Aspartate Amino Transf (AST/SGOT) 31 U/L Alanine Aminotransferase (ALT/SGPT) 18 U/L Total Bilirubin 4.6 MG/DL Sodium Level 135 MEQ/L Potassium Level 3.1 MEQ/L Chloride Level 100 MEQ/L Carbon Dioxide Level 30.1 MEQ/L Anion Gap 5 MEQ/L Estimat Glomerular Filtration Rate 87 ML/MIN Differential Total Cells Counted 100 100 Neutrophils % (Manual) 81 % 74 % Lymphocytes % 19 % 17 % Neutrophils # (Manual) 2.7 TH/MM3 2.3 TH/MM3 Band Neutrophils % 1 % Monocytes % 4 % Eosinophils % 4 % Metamyelocytes 0 % Fibrinogen 303 mg/dL Administered Medications Medications (Trade) Dose Ordered Sig/Monik Route PRN Reason Start Time Stop Time Status Last Admin Dose Admin Thiamine HCl (Vitamin B1) 100 mg DAILY PO 12/11/16 09:00 12/14/16 08:22 Sodium Chloride (NS Flush) 2 ml BID IV FLUSH 12/11/16 09:00 12/14/16 08:24 Ondansetron HCl (Zofran Inj) 4 mg Q6H PRN IVP NAUSEA OR VOMITING 12/11/16 03:15 12/12/16 06:09 Oxycodone HCl (Roxicodone) 10 mg Q4H PRN PO PAIN SCALE 6 TO 10 12/11/16 04:30 12/12/16 00:10 Morphine Sulfate (Morphine Inj) 4 mg Q3H PRN IV PUSH BREAKTHROUGH PAIN 12/11/16 04:30 12/14/16 07:44 Lorazepam (Ativan Inj) 2 mg Q2H PRN IV PUSH CIWA 11-14 12/11/16 13:45 12/13/16 03:02 Lorazepam (Ativan Inj) 2 mg Q1H PRN IV PUSH CIWA 15-20 12/11/16 13:45 12/13/16 19:12 Calcium/Vitamin D (Oscal-D 250-125) 250 mg Q12HR PO 12/12/16 21:00 12/14/16 08:22 Cholecalciferol (Vitamin D3) 1,000 units DAILY PO 12/13/16 09:00 12/14/16 08:22 Chlorhexidine Gluconate (Peridex 0.12% Liq) 15 ml BID@08,20 MT 12/12/16 20:00 12/14/16 08:22 Folic Acid (Folate) 1 mg DAILY PO 12/13/16 09:00 12/14/16 08:22 Hydralazine HCl (Apresoline Inj) 20 mg Q4H PRN IV SBP>160, DBP>90 12/13/16 14:30 12/14/16 09:41 Objective Remarks GENERAL: Intubated female lying in bed, agitated. SKIN: Warm and dry. improving ecchymoses along right neck and chest wall. HEAD: Normocephalic. EYES: No injection or drainage. NECK: Supple, trachea midline. CARDIOVASCULAR: +S1/S2 RESPIRATORY: anterior quinn clear. on mechanical ventilation. GASTROINTESTINAL: Abdomen nondistended. EXTREMITIES: No cyanosis. left arm in long-arm splint. NEUROLOGICAL: intubated, moving extremities. tracks with eyes. tries to speak. Assessment/Plan Problem List: (1) Thrombocythemia ICD Codes: D47.3 - Thrombocythemia Status: Chronic Plan: --has evidence of chronic thrombocytopenia partially from the hypersplenism and probably from the liver disease and the deficiency in thrombopoietin. -- will optimize her bone marrow in its effort for hematopoiesis with B12 and folic acid --give Supportive transfusion to keep the hemoglobin at least at 7. --hematoma will be managed conservatively. anticipate that the swelling will decrease in time. (2) Cirrhosis ICD Codes: K74.60 - Cirrhosis Status: Chronic Plan: --alcoholic liver disease has led to cirrhosis. --has evidence of portal hypertension from previous imaging study. Assessment 66-year-old woman with a history of alcoholic cirrhosis, alcoholism, hepatitis C. She has had previous falls and fracture associated with drinking. No history was able to be obtained from the patient as she is intubated and sedated post her surgery. History was obtained through review of the electronic medical records. She presented to the emergency room on 12/10/2016 status post a fall. She was drinking alcohol, lost her balance, tripped on her flip-flops and fell on her left elbow. X-rays of the elbow shows a complex left elbow fracture. Dr. Parnell performed an open reduction internal fixation of the left supracondylar distal humerus fracture. Her course was complicated by hematoma formation during surgery of the left neck and chest wall. There was extravasation of transfused blood. The patient was left intubated on mechanical ventilatory support. She was transferred to the ICU under the care of Dr. Rodrigez. h/o Alcoholic liver disease, Hepatosplenomegaly. Esophageal varices, portal hypertension, cholelithiasis Plan 1. monitor CBC, coags 2. no transfuse needed at present. monitor closely for bleeding. Attending Statement The exam, history, and the medical decision-making described in the above note were completed with the assistance of the mid-level provider. I reviewed and agree with the findings presented. I attest that I had a [id number] encounter with the patient on the same day, and personally performed and documented my assessment and findings in the medical record. 66 yoF with a history of alcohol abuse and liver cirrhosis admitted with left extremity fracture from a fall. She s/p ORIF complicated by hematoma. She has baseline thrombocytopenia and coagulopathy due to liver disease and alcohol consumptions. No active bleeding. Extubated today. Continue to monitor counts and coags. Cortney Caruso Dec 14, 2016 11:09 Libby Saravia MD Dec 14, 2016 17:09
[2016-12-15] VITALS (8 sets, daily range): BP systolic 144–199; BP diastolic 64–88; PULSE 75–87; RESP 18–19; TEMP 96.8–98.1; O2SAT 92–94
[2016-12-15] MEDS: THIAMINE HCL 100 MG TAB PO SCH (08:38)
[2016-12-15] MEDS: CALCIUM/VITAMIN D 250 MG/125 U TAB PO SCH ×2 (08:38→20:50)
[2016-12-15] MEDS: CHOLECALCIFEROL (VIT D3) 1000 UNIT TAB PO SCH (08:38)
[2016-12-15] MEDS: FOLIC ACID 1 MG TAB PO SCH (08:38)
--- NOTE | 2016-12-15 09:13 | PD.ONC.PN ---
Subjective Subjective Remarks Afebrile overnight. Patient resting in bed in nad. Eager to go home. No bleeding. hematoma in neck improving. Objective Data Date Time Temp Pulse Resp B/P (MAP) Pulse Ox O2 Delivery O2 Flow Rate FiO2 12/15/16 08:00 97.9 75 18 169/70 (103) 94 12/15/16 03:45 96.8 82 18 144/64 (90) 93 12/15/16 03:29 18 12/15/16 00:35 98.1 84 18 174/73 (106) 93 12/14/16 19:40 97.6 92 18 144/64 (90) 95 12/14/16 17:00 97.7 86 16 174/74 (107) 94 12/14/16 16:05 77 21 146/65 (92) 92 12/14/16 16:01 78 19 154/105 (121) 91 12/14/16 16:00 81 21 90 12/14/16 12:00 98.6 12/14/16 10:00 100 22 96 12/14/16 09:58 97 22 138/91 (107) 97 12/14/16 09:50 97 Nasal Cannula 2.00 12/14/16 09:45 88 19 198/77 (117) 100 12/14/16 09:44 88 15 208/85 (126) 100 12/14/16 09:42 86 11 200/81 (120) 99 12/14/16 09:26 98 14 218/95 (136) 100 12/14/16 09:20 Nasal Cannula 40 12/15/16 12/15/16 12/15/16 07:00 15:00 23:00 Intake Total 240 ml Balance 240 ml Result Diagram: 12/14/16 0348 12/13/16 1155 Administered Medications Medications (Trade) Dose Ordered Sig/Monik Route PRN Reason Start Time Stop Time Status Last Admin Dose Admin Thiamine HCl (Vitamin B1) 100 mg DAILY PO 12/11/16 09:00 12/15/16 08:38 Sodium Chloride (NS Flush) 2 ml BID IV FLUSH 12/11/16 09:00 12/14/16 21:12 Ondansetron HCl (Zofran Inj) 4 mg Q6H PRN IVP NAUSEA OR VOMITING 12/11/16 03:15 12/12/16 06:09 Oxycodone HCl (Roxicodone) 10 mg Q4H PRN PO PAIN SCALE 6 TO 10 12/11/16 04:30 12/15/16 08:39 Morphine Sulfate (Morphine Inj) 4 mg Q3H PRN IV PUSH BREAKTHROUGH PAIN 12/11/16 04:30 12/14/16 07:44 Lorazepam (Ativan Inj) 2 mg Q2H PRN IV PUSH CIWA 11-14 12/11/16 13:45 12/13/16 03:02 Lorazepam (Ativan Inj) 2 mg Q1H PRN IV PUSH CIWA 15-20 12/11/16 13:45 12/13/16 19:12 Calcium/Vitamin D (Oscal-D 250-125) 250 mg Q12HR PO 12/12/16 21:00 12/15/16 08:38 Cholecalciferol (Vitamin D3) 1,000 units DAILY PO 12/13/16 09:00 12/15/16 08:38 Chlorhexidine Gluconate (Peridex 0.12% Liq) 15 ml BID@08,20 MT 12/12/16 20:00 12/14/16 08:22 Folic Acid (Folate) 1 mg DAILY PO 12/13/16 09:00 12/15/16 08:38 Hydralazine HCl (Apresoline Inj) 20 mg Q4H PRN IV SBP>160, DBP>90 12/13/16 14:30 12/14/16 09:41 Objective Remarks GENERAL: Middle aged female upright in bed in [facility]. SKIN: Warm and dry. bruising along neck and chest wall, lightening. HEAD: Normocephalic. EYES: No injection or drainage. NECK: Supple, trachea midline. CARDIOVASCULAR: +S1/S2 RESPIRATORY: anterior quinn clear GASTROINTESTINAL: Abdomen nondistended. EXTREMITIES: No cyanosis. left arm in long-arm splint. NEUROLOGICAL: awake and alert, normal speech. moving all extremities. Assessment/Plan Problem List: (1) Thrombocythemia ICD Codes: D47.3 - Thrombocythemia Status: Chronic Plan: --has evidence of chronic thrombocytopenia partially from the hypersplenism and probably from the liver disease and the deficiency in thrombopoietin. -- will optimize her bone marrow in its effort for hematopoiesis with B12 and folic acid --give supportive transfusion to keep the hemoglobin at least at 7. --hematoma will be managed conservatively. anticipate that the swelling will decrease in time. (2) Cirrhosis ICD Codes: K74.60 - Cirrhosis Status: Chronic Plan: --alcoholic liver disease has led to cirrhosis. --has evidence of portal hypertension from previous imaging study. Assessment 66-year-old woman with a history of alcoholic cirrhosis, alcoholism, hepatitis C. She has had previous falls and fracture associated with drinking. No history was able to be obtained from the patient as she is intubated and sedated post her surgery. History was obtained through review of the electronic medical records. She presented to the emergency room on 12/10/2016 status post a fall. She was drinking alcohol, lost her balance, tripped on her flip-flops and fell on her left elbow. X-rays of the elbow shows a complex left elbow fracture. Dr. Parnell performed an open reduction internal fixation of the left supracondylar distal humerus fracture. Her course was complicated by hematoma formation during surgery of the left neck and chest wall. There was extravasation of transfused blood. The patient was left intubated on mechanical ventilatory support. She was transferred to the ICU under the care of Dr. Rodrigez. h/o Alcoholic liver disease, Hepatosplenomegaly. Esophageal varices, portal hypertension, cholelithiasis Plan 1. await CBC today 2. continue supportive care Attending Statement The exam, history, and the medical decision-making described in the above note were completed with the assistance of the mid-level provider. I reviewed and agree with the findings presented. I attest that I had a [id number] encounter with the patient on the same day, and personally performed and documented my assessment and findings in the medical record. 66 yoF alcohol abuse, alcoholic cirrhosis admitted after a fall at home and left extremity fracture. Hematome during ORIF. Bruising present on legs, arms and chest/ neck. Left arm in bandage. Hemoglobin and platelets stable. Cortney Caruso Dec 15, 2016 09:13 Libby Saravia MD Dec 15, 2016 12:54
--- NOTE | 2016-12-15 11:02 | HHI.PR ---
Subjective Remarks in no acute distress. pain is fairly controlled. no new complaints. Objective Vitals Vital Signs Date Time Temp Pulse Resp B/P (MAP) Pulse Ox O2 Delivery O2 Flow Rate FiO2 12/15/16 08:00 97.9 75 18 169/70 (103) 94 12/15/16 03:45 96.8 82 18 144/64 (90) 93 12/15/16 03:29 18 12/15/16 00:35 98.1 84 18 174/73 (106) 93 12/14/16 19:40 97.6 92 18 144/64 (90) 95 12/14/16 17:00 97.7 86 16 174/74 (107) 94 12/14/16 16:05 77 21 146/65 (92) 92 12/14/16 16:01 78 19 154/105 (121) 91 12/14/16 16:00 81 21 90 12/14/16 12:00 98.6 I/O 12/14/16 12/14/16 12/14/16 12/15/16 12/15/16 12/15/16 07:00 15:00 23:00 07:00 15:00 23:00 Intake Total 120 ml 50 ml 660 ml 240 ml Output Total 750 ml 600 ml Balance -630 ml 50 ml 60 ml 240 ml Intake Oral 660 ml 240 ml IV Total 50 ml Other 120 ml Output Urine Total 750 ml 600 ml # Voids 3 1 # Bowel Movements 0 0 0 Result Diagram: 12/14/16 0348 12/13/16 1155 Imaging Last Impressions Elbow X-Ray 12/12/16 0000 Signed Impressions: Service Date/Time: December 11:08 - CONCLUSION: Good position and alignment on this postoperative study. Magen Hill MD Chest X-Ray 12/12/16 0000 Signed Impressions: Service Date/Time: December 12:57 - CONCLUSION: 1. ETT in good position. 2. Mild bibasilar atelectasis. Robbie Correia MD Objective Remarks GENERAL: This is a well-nourished, well-developed patient, in no apparent distress. Neck; right sided neck hematoma noted. CARDIOVASCULAR: Regular rate and regular rhythm without murmurs, gallops, or rubs. RESPIRATORY: Clear to auscultation. Breath sounds equal bilaterally. No wheezes , rales, or rhonchi. GASTROINTESTINAL: Abdomen soft, non-tender, nondistended. Normal, active bowel sounds MUSCULOSKELETAL:left arm covered with clean dressing. NEURO: Alert & Oriented x4 to person, place, time, situation. Moves all ext x4 Medications and IVs Current Medications Morphine Sulfate (Morphine Inj) 2 mg ONCE ONCE IV PUSH Last administered on 01:55; Start 12/10/16 at 23:30; Stop 12/10/16 at 23:31; Status DC Lidocaine HCl (Xylocaine 1% Inj (50 ml)) 50 ml ONCE ONCE INFIL Last administered on 12/11/16 01:56; Start 12/11/16 at 00:30; Stop 12/11/16 at 00:31 ; Status DC Sodium Chloride 1,000 ml @ 999 mls/hr BOLUS ONCE IV Last administered on 12/11 02:46; Start 12/11/16 at 02:30; Stop 12/11/16 at 03:30; Status DC Thiamine HCl (Vitamin B1) 500 mg ONCE ONCE PO Last administered on 12/11/16 04:52; Start 12/11/16 at 03:15; Stop 12/11/16 at 03:16; Status DC Thiamine HCl (Vitamin B1) 100 mg DAILY PO Last administered on 12/15/16 08:38 ; Start 12/11/16 at 09:00 Sodium Chloride (NS Flush) 2 ml UNSCH PRN IV FLUSH FLUSH AFTER USING IV ACCESS ; Start 12/11/16 at 03:15 Sodium Chloride (NS Flush) 2 ml BID IV FLUSH Last administered on 12/14/16 21: 12; Start 12/11/16 at 09:00 Ondansetron HCl (Zofran Inj) 4 mg Q6H PRN IVP NAUSEA OR VOMITING Last administered on 12/12/16 06:09; Start 12/11/16 at 03:15 Naloxone HCl (Narcan Inj) 0.4 mg UNSCH PRN IV PUSH SEE LABEL COMMENTS; Start 12/11/16 at 03:15; Stop 12/12/16 at 08:18; Status DC Magnesium Hydroxide (Milk Of Magnesia Liq) 30 ml Q12H PRN PO Mild constipation ; Start 12/11/16 at 03:15 Sennosides (Senokot) 17.2 mg Q12H PRN PO Moderate constipation; Start 12/11/16 at 03:15 Bisacodyl (Dulcolax Supp) 10 mg DAILY PRN RECTAL SEVERE CONSITIPATION; Start 12/11/16 at 03:15 Lactulose (Lactulose Liq) 30 ml DAILY PRN PO SEVERE CONSITIPATION; Start at 03:15 Oxycodone HCl (Roxicodone) 10 mg Q4H PRN PO PAIN SCALE 6 TO 10 Last administered on 12/15/16 08:39; Start 12/11/16 at 04:30 Morphine Sulfate (Morphine Inj) 4 mg Q3H PRN IV PUSH BREAKTHROUGH PAIN Last administered on 12/14/16 07:44; Start 12/11/16 at 04:30 Oxycodone HCl (Roxicodone) 5 mg Q4H PRN PO PAIN SCALE 3 TO 5; Start 12/11/16 at 04:30 Naloxone HCl (Narcan Inj) 0.4 mg UNSCH PRN IV PUSH SEE LABEL COMMENTS; Start 12/11/16 at 04:30 Influenza Virus Vaccine (Flu (Quadrivalent) Vaccine Inj) 0.5 ml ONCE ONCE IM ; Start 12/13/16 at 10:00; Stop 12/13/16 at 10:04; Status DC Pneumococcal Polyvalent Vaccine (Pneumovax-23 Inj) 25 mcg ONCE ONCE IM ; Start 12/13/16 at 10:00; Stop 12/13/16 at 10:04; Status DC Cefazolin Sodium/ Dextrose 50 ml @ 100 mls/hr Q8H IV Last administered on 12/12 06:10; Start 12/11/16 at 15:00; Stop 12/12/16 at 14:31; Status DC Gentamicin Sulfate/Sodium Chloride 100 ml @ 200 mls/hr Q8H IV Last administered on 12/13/16 06:38; Start 12/11/16 at 15:00; Stop 12/13/16 at 07:29 ; Status DC Flumazenil (Romazicon Inj) 0.2 mg Q1M PRN IV PUSH SEE LABEL COMMENTS; Start at 13:45 Lorazepam (Ativan) 1 mg Q4H PRN PO CIWA 8 - 10; Start 12/11/16 at 13:45 Lorazepam (Ativan Inj) 1 mg Q4H PRN IV PUSH CIWA 8 - 10; Start 12/11/16 at 13: 45 Lorazepam (Ativan) 2 mg Q2H PRN PO CIWA 11-14; Start 12/11/16 at 13:45 Lorazepam (Ativan Inj) 2 mg Q2H PRN IV PUSH CIWA 11-14 Last administered on 03:02; Start 12/11/16 at 13:45 Lorazepam (Ativan Inj) 2 mg Q1H PRN IV PUSH CIWA 15-20 Last administered on 19:12; Start 12/11/16 at 13:45 Lorazepam (Ativan Inj) 2 mg Q15M PRN IV PUSH CIWA > 20; Start 12/11/16 at 13:45 Haloperidol Lactate (Haldol Inj) 2 mg Q15M PRN IM SEE LABEL COMMENTS; Start at 13:45 Sodium Chloride 500 ml @ 50 mls/hr Q10H IV Last administered on 12/11/16 15: 00; Start 12/11/16 at 15:00; Stop 12/12/16 at 00:59; Status DC Acetaminophen 0 ml @ As Directed STK-MED ONCE IV ; Start 12/12/16 at 06:26; Stop 12/12/16 at 06:27; Status DC Sodium Chloride 250 ml @ 15 mls/hr ONCE ONCE IV ; Start 12/12/16 at 07:45; Stop 12/12/16 at 08:28; Status DC Phytonadione (Mephyton) 10 mg ONCE ONCE PO ; Start 12/12/16 at 09:00; Stop 12/12/16 at 09:01; Status Cancel Sodium Chloride 250 ml @ 15 mls/hr ONCE ONCE IV ; Start 12/12/16 at 08:30; Stop 12/13/16 at 01:09; Status DC Gentamicin Sulfate (Gentamicin Inj) 240 mg STK-MED ONCE .ROUTE Last administered on 12/12/16 09:57; Start 12/12/16 at 08:35; Stop 12/12/16 at 08:36 ; Status DC Tranexamic Acid 1125 mg/Sodium Chloride 111.25 ml @ 200 mls/ hr ONCE IV Last administered on 12/12/16 10:06; Start 12/12/16 at 10:00; Stop 12/12/16 at 16:00 ; Status DC Phytonadione (Aquamephyton Inj) 10 mg ONCE ONCE SQ ; Start 12/12/16 at 11:00; Stop 12/12/16 at 11:01; Status Cancel Phytonadione (Vitamin K Inj) 10 mg ONCE ONCE SQ Last administered on 11:00; Start 12/12/16 at 11:00; Stop 12/12/16 at 11:01; Status DC Cefazolin Sodium (Ancef Inj) 2,000 mg ONCE ONCE IV Last administered on 09:53; Start 12/12/16 at 09:50; Stop 12/12/16 at 10:42; Status DC Miscellaneous Information (Post-op Orders (for Pharmacy)) STAT ONCE XX ; Start 12/12/16 at 11:30; Stop 12/12/16 at 13:02; Status DC Cefazolin Sodium/ Dextrose 50 ml @ 100 mls/hr Q8H IV Last administered on 12/14 08:22; Start 12/12/16 at 18:00; Stop 12/14/16 at 10:29; Status DC Calcium/Vitamin D (Oscal-D 250-125) 250 mg Q12HR PO Last administered on 08:38; Start 12/12/16 at 21:00 Cholecalciferol (Vitamin D3) 1,000 units DAILY PO Last administered on 08:38; Start 12/13/16 at 09:00 Propofol 100 ml @ As Directed STK-MED ONCE .ROUTE ; Start 12/12/16 at 12:14; Stop 12/12/16 at 12:15; Status DC Midazolam HCl (Versed Inj) 2 mg STK-MED ONCE .ROUTE ; Start 12/12/16 at 12:31; Stop 12/12/16 at 12:32; Status DC Miscellaneous Information ALL NURSING DEPARTME... UNSCH PRN .XX SEE LABEL COMMENTS; Start 12/12/16 at 12:30; Stop 12/13/16 at 12:29; Status DC Propofol 100 ml @ 2.25 mls/hr TITRATE PRN IV Sedation Last administered on 09:40; Start 12/12/16 at 13:15; Stop 12/12/16 at 18:34; Status DC Sodium Chloride 250 ml @ 15 mls/hr ONCE ONCE IV ; Start 12/12/16 at 14:30; Stop 12/13/16 at 07:09; Status DC Cefazolin Sodium/ Dextrose 50 ml @ As Directed STK-MED ONCE .ROUTE ; Start 12/12 at 14:44; Stop 12/12/16 at 14:45; Status DC Lorazepam (Ativan Inj) 2 mg STK-MED ONCE .ROUTE Last administered on 12/12/16 15:11; Start 12/12/16 at 15:11; Stop 12/12/16 at 15:12; Status DC Lorazepam (Ativan Inj) 2 mg NOW ONCE IV ; Start 12/12/16 at 15:45; Stop at 15:46; Status DC Sodium Chloride 1,000 ml @ 84 mls/hr [id number] IV Last administered on 04:00; Start 12/12/16 at 16:15; Stop 12/14/16 at 09:59; Status DC Chlorhexidine Gluconate (Peridex 0.12% Liq) 15 ml BID@08,20 MT Last administered on 12/14/16 08:22; Start 12/12/16 at 20:00 Propofol 100 ml @ 2.25 mls/hr TITRATE PRN IV SEDATION Last administered on 05:41; Start 12/12/16 at 17:15; Stop 12/14/16 at 09:59; Status DC Cyanocobalamin (Vitamin B12 Inj) 1,000 mcg ONCE ONCE SQ Last administered on 12/12/16 20:27; Start 12/12/16 at 19:00; Stop 12/12/16 at 19:04; Status DC Folic Acid (Folate) 1 mg DAILY PO Last administered on 12/15/16 08:38; Start 12/13/16 at 09:00 Hydralazine HCl (Apresoline Inj) 20 mg STK-MED ONCE .ROUTE Last administered on 12/13/16 13:44; Start 12/13/16 at 13:44; Stop 12/13/16 at 13:45; Status DC Hydralazine HCl (Apresoline Inj) 20 mg Q4H PRN IV SBP>160, DBP>90 Last administered on 12/14/16t 09:41; Start 12/13/16 at 14:30 A/P Assessment and Plan A/P Acute respiratory failure on mechanical ventilation - resolved s/p intubation/ extubation. Hematoma on left side of neck - improving. liver cirrhosis due to alcohol abuse and hepatitis C Left humerus open supracondylar intra-articular fracture status post ORIF continue with pain control- management per ortho Acute blood loss anemia - stable. will monitor periodically. Thrombocytopenia most likely secondary to liver cirrhosis - stable, persistent , suspect hypersplenism continue supportive care- hematology following. DVT prophylaxis with SCD's- no chemical prophylaxis due to hematoma/ thrombocytopenia PT consulted. Kwame Johnson MD Dec 15, 2016 11:02
[2016-12-15 18:04] LABS: AUTOMATED NEUTROPHIL # 1.3 TH/MM3 (1.8-7.7); BASOPHIL % 1.1 % (0.0-2.0); EOSINOPHIL # 0.1 TH/MM3 (0-0.4); EOSINOPHIL % 2.4 % (0.0-4.0); HEMATOCRIT 28.2 % (35.0-46.0); LYMPH % 28.6 % (9.0-44.0); LYMPHOCYTE # 0.7 TH/MM3 (1.0-4.8); MEAN CELL VOLUME 94.6 FL (80.0-100.0); MEAN CORPUSCULAR HEMOGLOBIN 33.7 PG (27.0-34.0); MEAN CORPUSCULAR HGB CONC 35.6 % (32.0-36.0); MEAN PLATELET VOLUME 8.8 FL (7.0-11.0); MONO % 18.2 % (0.0-8.0); MONOCYTE # 0.5 TH/MM3 (0-0.9); NEUT % 49.7 % (16.0-70.0); PLATELET COUNT 43 TH/MM3 (150-450); RED BLOOD COUNT 2.98 MIL/MM3 (4.00-5.30); WHITE BLOOD COUNT 2.5 TH/MM3 (4.0-11.0)
[2016-12-15 18:23] LABS: ALBUMIN 2.8 GM/DL (3.4-5.0); ALT (GPT) 14 U/L (10-53); AST (GOT) 31 U/L (15-37); BICARBONATE 28.3 MEQ/L (21.0-32.0); BLOOD UREA NITROGEN 6 MG/DL (7-18); CALCIUM 8.5 MG/DL (8.5-10.1); CHLORIDE 98 MEQ/L (98-107); CREATININE 0.57 MG/DL (0.50-1.00); GLOMERULAR FILTRATION RATE 106 ML/MIN (>89); GLUCOSE,RANDOM 127 MG/DL (74-106); SODIUM (NA) 134 MEQ/L (136-145)
[2016-12-15 18:31] LABS: INTERNATIONAL NORMALIZED RATIO 1.2 RATIO; PROTHROMBIN TIME - PATIENT 12.9 SEC (9.8-11.6)
[2016-12-15 18:32] LABS: ALKALINE PHOSPHATASE 103 U/L (45-117); TOTAL BILIRUBIN ADULT 3.7 MG/DL (0.2-1.0); TOTAL PROTEIN 7.1 GM/DL (6.4-8.2)
[2016-12-15] MEDS: CHLORHEXIDINE 0.12% (ORAL KIT) 15 ML CUP MT SCH (20:00)
[2016-12-15] MEDS: SODIUM CHLORIDE 0.9% FLUSH 10 ML FLUSH IV FLUSH SCH (20:50)
[2016-12-16] MEDS ORDERED: ALBUTEROL SULFATE 90 MCG/ACT HFA 8 GM INHALER INH PRN (02:45)
--- NOTE | 2016-12-16 06:54 | PD.ORT.PN ---
Subjective Subjective Remarks Patient is stable. no new complaints Objective Vitals Vital Signs Date Time Temp Pulse Resp B/P (MAP) Pulse Ox O2 Delivery O2 Flow Rate FiO2 12/15/16 23:50 97.8 81 19 199/88 (125) 93 12/15/16 19:05 98.1 79 18 195/80 (118) 92 12/15/16 16:00 97.1 87 19 94 12/15/16 12:00 97.1 76 18 179/72 (107) 94 12/15/16 11:58 92 21 12/15/16 09:40 18 12/15/16 08:00 97.9 75 18 169/70 (103) 94 I/O 12/15/16 12/15/16 12/15/16 12/16/16 12/16/16 12/16/16 07:00 15:00 23:00 07:00 15:00 23:00 Intake Total 240 ml 480 ml 480 ml Balance 240 ml 480 ml 480 ml Intake Oral 240 ml 480 ml 480 ml # Voids 1 4 2 3 # Bowel Movements 0 1 0 Result Diagram: 12/15/16 1726 12/15/16 1726 Other Results Laboratory Tests Test 12/15/16 17:26 Prothromb Time International Ratio 1.2 RATIO Prothrombin Time 12.9 SEC (9.8-11.6) Imaging Last 72 hours Impressions Elbow X-Ray 12/12/16 0000 Signed Impressions: Service Date/Time: December 11:08 - CONCLUSION: Good position and alignment on this postoperative study. Magen Hill MD Chest X-Ray 12/12/16 0000 Signed Impressions: Service Date/Time: December 12:57 - CONCLUSION: 1. ETT in good position. 2. Mild bibasilar atelectasis. Robbie Correia MD Objective Remarks Left upper extremity: Long arm splint in place. Splint is clean dry and intact. Distally she has good capillary refills and tissue perfusion. Full extension and flexion of all fingers. Intact sensation distally. Swelling a +2 over hand Assessment & Plan Assessment and Plan 1) Left distal Humerus Fx ORIF POD 4 Nonweightbearing left upper extremity Maintain splint Sling when out of bed Continued medical management Discharge planning. Orthopedically cleared for discharge Long discussion about alcohol use. She understands that she is not to use the left arm any activities which includes lifting or pushing off. If she does she will displace fractures Follow-up x-rays will be performed in approximately 14 days Jatin Castorena Jr. Dec 16, 2016 06:54
[2016-12-16 07:40] VITALS: BP 165/74; PULSE 77; RESP 20; TEMP 98.4; O2SAT 94
[2016-12-16] MEDS: CHLORHEXIDINE 0.12% (ORAL KIT) 15 ML CUP MT SCH (08:28)
[2016-12-16] MEDS: CHOLECALCIFEROL (VIT D3) 1000 UNIT TAB PO SCH (08:40)
[2016-12-16] MEDS: THIAMINE HCL 100 MG TAB PO SCH (08:40)
[2016-12-16] MEDS: CALCIUM/VITAMIN D 250 MG/125 U TAB PO SCH (08:40)
[2016-12-16] MEDS: SODIUM CHLORIDE 0.9% FLUSH 10 ML FLUSH IV FLUSH SCH (08:40)
[2016-12-16] MEDS: FOLIC ACID 1 MG TAB PO SCH (08:40)
[2016-12-16] MEDS: ONDANSETRON HCL 4 MG/2 ML VIAL IVP PRN (08:51)
--- NOTE | 2016-12-16 09:27 | PD.ONC.PN ---
Subjective Subjective Remarks Afebrile overnight. Patient resting in bed in nad. "When can I go home?" Objective Data Date Time Temp Pulse Resp B/P (MAP) Pulse Ox O2 Delivery O2 Flow Rate FiO2 12/16/16 07:40 98.4 77 20 165/74 (104) 94 12/15/16 23:50 97.8 81 19 199/88 (125) 93 12/15/16 19:05 98.1 79 18 195/80 (118) 92 12/15/16 16:00 97.1 87 19 94 12/15/16 12:00 97.1 76 18 179/72 (107) 94 12/15/16 11:58 92 21 12/15/16 09:40 18 12/16/16 12/16/16 12/16/16 07:00 15:00 23:00 Intake Total 480 ml Balance 480 ml Result Diagram: 12/15/16 1726 12/15/16 1726 Laboratory Results Laboratory Tests Test 12/15/16 17:26 White Blood Count 2.5 TH/MM3 Red Blood Count 2.98 MIL/MM3 Hemoglobin 10.0 GM/DL Hematocrit 28.2 % Mean Corpuscular Volume 94.6 FL Mean Corpuscular Hemoglobin 33.7 PG Mean Corpuscular Hemoglobin Concent 35.6 % Red Cell Distribution Width 19.0 % Platelet Count 43 TH/MM3 Mean Platelet Volume 8.8 FL Neutrophils (%) (Auto) 49.7 % Lymphocytes (%) (Auto) 28.6 % Monocytes (%) (Auto) 18.2 % Eosinophils (%) (Auto) 2.4 % Basophils (%) (Auto) 1.1 % Neutrophils # (Auto) 1.3 TH/MM3 Lymphocytes # (Auto) 0.7 TH/MM3 Monocytes # (Auto) 0.5 TH/MM3 Eosinophils # (Auto) 0.1 TH/MM3 Basophils # (Auto) 0.0 TH/MM3 CBC Comment AUTO DIFF Differential Comment AUTO DIFF CONFIRMED Platelet Estimate LOW Platelet Morphology Comment NORMAL Prothrombin Time 12.9 SEC Prothromb Time International Ratio 1.2 RATIO Activated Partial Thromboplast Time 29.3 SEC Fibrinogen 275 mg/dL Blood Urea Nitrogen 6 MG/DL Creatinine 0.57 MG/DL Random Glucose 127 MG/DL Total Protein 7.1 GM/DL Albumin 2.8 GM/DL Calcium Level 8.5 MG/DL Alkaline Phosphatase 103 U/L Aspartate Amino Transf (AST/SGOT) 31 U/L Alanine Aminotransferase (ALT/SGPT) 14 U/L Total Bilirubin 3.7 MG/DL Sodium Level 134 MEQ/L Potassium Level 3.0 MEQ/L Chloride Level 98 MEQ/L Carbon Dioxide Level 28.3 MEQ/L Anion Gap 8 MEQ/L Estimat Glomerular Filtration Rate 106 ML/MIN Administered Medications Medications (Trade) Dose Ordered Sig/Monik Route PRN Reason Start Time Stop Time Status Last Admin Dose Admin Thiamine HCl (Vitamin B1) 100 mg DAILY PO 12/11/16 09:00 12/16/16 08:40 Sodium Chloride (NS Flush) 2 ml BID IV FLUSH 12/11/16 09:00 12/16/16 08:40 Ondansetron HCl (Zofran Inj) 4 mg Q6H PRN IVP NAUSEA OR VOMITING 12/11/16 03:15 12/16/16 08:51 Oxycodone HCl (Roxicodone) 10 mg Q4H PRN PO PAIN SCALE 6 TO 10 12/11/16 04:30 12/16/16 08:45 Morphine Sulfate (Morphine Inj) 4 mg Q3H PRN IV PUSH BREAKTHROUGH PAIN 12/11/16 04:30 12/14/16 07:44 Oxycodone HCl (Roxicodone) 5 mg Q4H PRN PO PAIN SCALE 3 TO 5 12/11/16 04:30 12/15/16 18:19 Lorazepam (Ativan) 2 mg Q2H PRN PO CIWA 11-14 12/11/16 13:45 12/15/16 18:19 Lorazepam (Ativan Inj) 2 mg Q2H PRN IV PUSH CIWA 11-14 12/11/16 13:45 12/13/16 03:02 Lorazepam (Ativan Inj) 2 mg Q1H PRN IV PUSH CIWA 15-20 12/11/16 13:45 12/13/16 19:12 Calcium/Vitamin D (Oscal-D 250-125) 250 mg Q12HR PO 12/12/16 21:00 12/16/16 08:40 Cholecalciferol (Vitamin D3) 1,000 units DAILY PO 12/13/16 09:00 12/16/16 08:40 Chlorhexidine Gluconate (Peridex 0.12% Liq) 15 ml BID@08,20 MT 12/12/16 20:00 12/15/16 20:00 Folic Acid (Folate) 1 mg DAILY PO 12/13/16 09:00 12/16/16 08:40 Hydralazine HCl (Apresoline Inj) 20 mg Q4H PRN IV SBP>160, DBP>90 12/13/16 14:30 12/14/16 09:41 Albuterol Sulfate (Proair Hfa Inh) 2 puff Q4HR PRN INH SOB/WHEEZING 12/16/16 02:45 12/16/16 08:45 Objective Remarks GENERAL: Middle aged female lying in bed in nad. SKIN: Warm and dry. improving ecchymoses on neck and chest wall. HEAD: Normocephalic. EYES: No injection or drainage. NECK: Supple, trachea midline. CARDIOVASCULAR: +S1/S2 RESPIRATORY: anterior quinn clear GASTROINTESTINAL: Abdomen nondistended. EXTREMITIES: No cyanosis. left arm in long-arm splint, distal extremities well perfused. NEUROLOGICAL: awake and alert, normal speech. moving all extremities. Assessment/Plan Problem List: (1) Thrombocythemia ICD Codes: D47.3 - Thrombocythemia Status: Chronic Plan: -- chronic thrombocytopenia d/t hypersplenism + liver disease and the deficiency in thrombopoietin. --give supportive transfusion to keep the hemoglobin at least at 7. --hematoma will be managed conservatively. anticipate that the swelling will decrease in time. (2) Cirrhosis ICD Codes: K74.60 - Cirrhosis Status: Chronic Plan: --alcoholic liver disease has led to cirrhosis. --has evidence of portal hypertension from previous imaging study. Assessment 66-year-old woman with a history of alcoholic cirrhosis, alcoholism, hepatitis C. She has had previous falls and fracture associated with drinking. No history was able to be obtained from the patient as she is intubated and sedated post her surgery. History was obtained through review of the electronic medical records. She presented to the emergency room on 12/10/2016 status post a fall. She was drinking alcohol, lost her balance, tripped on her flip-flops and fell on her left elbow. X-rays of the elbow shows a complex left elbow fracture. Dr. Parnell performed an open reduction internal fixation of the left supracondylar distal humerus fracture. Her course was complicated by hematoma formation during surgery of the left neck and chest wall. There was extravasation of transfused blood. The patient was left intubated on mechanical ventilatory support. She was transferred to the ICU under the care of Dr. Rodrigez. h/o Alcoholic liver disease, Hepatosplenomegaly. Esophageal varices, portal hypertension, cholelithiasis Plan 1. monitor CBC 2. continue supportive care Attending Statement Pt DC before could be seen, discussed above plan. Cortney Caruso Dec 16, 2016 09:27 Migdalia Moreno MD Dec 16, 2016 18:33
[2016-12-16 09:50] VITALS: RESP 16
--- NOTE | 2016-12-16 10:12 | HHI.PR ---
Subjective Remarks in no acute distress. pain is fairly controlled. no new complaints. hoping that she could go home soon. Objective Vitals Vital Signs Date Time Temp Pulse Resp B/P (MAP) Pulse Ox O2 Delivery O2 Flow Rate FiO2 12/16/16 09:50 16 12/16/16 07:40 98.4 77 20 165/74 (104) 94 12/15/16 23:50 97.8 81 19 199/88 (125) 93 12/15/16 19:05 98.1 79 18 195/80 (118) 92 12/15/16 16:00 97.1 87 19 94 12/15/16 12:00 97.1 76 18 179/72 (107) 94 12/15/16 11:58 92 21 I/O 12/15/16 12/15/16 12/15/16 12/16/16 12/16/16 12/16/16 07:00 15:00 23:00 07:00 15:00 23:00 Intake Total 240 ml 480 ml 480 ml Balance 240 ml 480 ml 480 ml Intake Oral 240 ml 480 ml 480 ml # Voids 1 4 2 3 # Bowel Movements 0 1 0 Result Diagram: 12/15/16 1726 12/15/16 1726 Imaging Last Impressions Elbow X-Ray 12/12/16 0000 Signed Impressions: Service Date/Time: December 11:08 - CONCLUSION: Good position and alignment on this postoperative study. Magen Hill MD Chest X-Ray 12/12/16 0000 Signed Impressions: Service Date/Time: December 12:57 - CONCLUSION: 1. ETT in good position. 2. Mild bibasilar atelectasis. Robbie Correia MD Objective Remarks GENERAL: This is a well-nourished, well-developed patient, in no apparent distress. Neck; right sided neck hematoma noted. CARDIOVASCULAR: Regular rate and regular rhythm without murmurs, gallops, or rubs. RESPIRATORY: Clear to auscultation. Breath sounds equal bilaterally. No wheezes , rales, or rhonchi. GASTROINTESTINAL: Abdomen soft, non-tender, nondistended. Normal, active bowel sounds MUSCULOSKELETAL:left arm covered with clean dressing. NEURO: Alert & Oriented x4 to person, place, time, situation. Moves all ext x4 Medications and IVs Current Medications Morphine Sulfate (Morphine Inj) 2 mg ONCE ONCE IV PUSH Last administered on 01:55; Start 12/10/16 at 23:30; Stop 12/10/16 at 23:31; Status DC Lidocaine HCl (Xylocaine 1% Inj (50 ml)) 50 ml ONCE ONCE INFIL Last administered on 12/11/16 01:56; Start 12/11/16 at 00:30; Stop 12/11/16 at 00:31 ; Status DC Sodium Chloride 1,000 ml @ 999 mls/hr BOLUS ONCE IV Last administered on 12/11 02:46; Start 12/11/16 at 02:30; Stop 12/11/16 at 03:30; Status DC Thiamine HCl (Vitamin B1) 500 mg ONCE ONCE PO Last administered on 12/11/16 04:52; Start 12/11/16 at 03:15; Stop 12/11/16 at 03:16; Status DC Thiamine HCl (Vitamin B1) 100 mg DAILY PO Last administered on 12/16/16 08:40 ; Start 12/11/16 at 09:00 Sodium Chloride (NS Flush) 2 ml UNSCH PRN IV FLUSH FLUSH AFTER USING IV ACCESS ; Start 12/11/16 at 03:15 Sodium Chloride (NS Flush) 2 ml BID IV FLUSH Last administered on 12/16/16 08: 40; Start 12/11/16 at 09:00 Ondansetron HCl (Zofran Inj) 4 mg Q6H PRN IVP NAUSEA OR VOMITING Last administered on 12/16/16 08:51; Start 12/11/16 at 03:15 Naloxone HCl (Narcan Inj) 0.4 mg UNSCH PRN IV PUSH SEE LABEL COMMENTS; Start 12/11/16 at 03:15; Stop 12/12/16 at 08:18; Status DC Magnesium Hydroxide (Milk Of Magnesia Liq) 30 ml Q12H PRN PO Mild constipation ; Start 12/11/16 at 03:15 Sennosides (Senokot) 17.2 mg Q12H PRN PO Moderate constipation; Start 12/11/16 at 03:15 Bisacodyl (Dulcolax Supp) 10 mg DAILY PRN RECTAL SEVERE CONSITIPATION; Start 12/11/16 at 03:15 Lactulose (Lactulose Liq) 30 ml DAILY PRN PO SEVERE CONSITIPATION; Start at 03:15 Oxycodone HCl (Roxicodone) 10 mg Q4H PRN PO PAIN SCALE 6 TO 10 Last administered on 12/16/16 08:45; Start 12/11/16 at 04:30 Morphine Sulfate (Morphine Inj) 4 mg Q3H PRN IV PUSH BREAKTHROUGH PAIN Last administered on 12/14/16 07:44; Start 12/11/16 at 04:30 Oxycodone HCl (Roxicodone) 5 mg Q4H PRN PO PAIN SCALE 3 TO 5 Last administered on 12/15/16 18:19; Start 12/11/16 at 04:30 Naloxone HCl (Narcan Inj) 0.4 mg UNSCH PRN IV PUSH SEE LABEL COMMENTS; Start 12/11/16 at 04:30 Influenza Virus Vaccine (Flu (Quadrivalent) Vaccine Inj) 0.5 ml ONCE ONCE IM ; Start 12/13/16 at 10:00; Stop 12/13/16 at 10:04; Status DC Pneumococcal Polyvalent Vaccine (Pneumovax-23 Inj) 25 mcg ONCE ONCE IM ; Start 12/13/16 at 10:00; Stop 12/13/16 at 10:04; Status DC Cefazolin Sodium/ Dextrose 50 ml @ 100 mls/hr Q8H IV Last administered on 12/12 06:10; Start 12/11/16 at 15:00; Stop 12/12/16 at 14:31; Status DC Gentamicin Sulfate/Sodium Chloride 100 ml @ 200 mls/hr Q8H IV Last administered on 12/13/16 06:38; Start 12/11/16 at 15:00; Stop 12/13/16 at 07:29 ; Status DC Flumazenil (Romazicon Inj) 0.2 mg Q1M PRN IV PUSH SEE LABEL COMMENTS; Start at 13:45 Lorazepam (Ativan) 1 mg Q4H PRN PO CIWA 8 - 10; Start 12/11/16 at 13:45 Lorazepam (Ativan Inj) 1 mg Q4H PRN IV PUSH CIWA 8 - 10; Start 12/11/16 at 13: 45 Lorazepam (Ativan) 2 mg Q2H PRN PO CIWA 11-14 Last administered on 12/15/16 18 :19; Start 12/11/16 at 13:45 Lorazepam (Ativan Inj) 2 mg Q2H PRN IV PUSH CIWA 11-14 Last administered on 03:02; Start 12/11/16 at 13:45 Lorazepam (Ativan Inj) 2 mg Q1H PRN IV PUSH CIWA 15-20 Last administered on 19:12; Start 12/11/16 at 13:45 Lorazepam (Ativan Inj) 2 mg Q15M PRN IV PUSH CIWA > 20; Start 12/11/16 at 13:45 Haloperidol Lactate (Haldol Inj) 2 mg Q15M PRN IM SEE LABEL COMMENTS; Start at 13:45 Sodium Chloride 500 ml @ 50 mls/hr Q10H IV Last administered on 12/11/16 15: 00; Start 12/11/16 at 15:00; Stop 12/12/16 at 00:59; Status DC Acetaminophen 0 ml @ As Directed STK-MED ONCE IV ; Start 12/12/16 at 06:26; Stop 12/12/16 at 06:27; Status DC Sodium Chloride 250 ml @ 15 mls/hr ONCE ONCE IV ; Start 12/12/16 at 07:45; Stop 12/12/16 at 08:28; Status DC Phytonadione (Mephyton) 10 mg ONCE ONCE PO ; Start 12/12/16 at 09:00; Stop 12/12/16 at 09:01; Status Cancel Sodium Chloride 250 ml @ 15 mls/hr ONCE ONCE IV ; Start 12/12/16 at 08:30; Stop 12/13/16 at 01:09; Status DC Gentamicin Sulfate (Gentamicin Inj) 240 mg STK-MED ONCE .ROUTE Last administered on 12/12/16 09:57; Start 12/12/16 at 08:35; Stop 12/12/16 at 08:36 ; Status DC Tranexamic Acid 1125 mg/Sodium Chloride 111.25 ml @ 200 mls/ hr ONCE IV Last administered on 12/12/16 10:06; Start 12/12/16 at 10:00; Stop 12/12/16 at 16:00 ; Status DC Phytonadione (Aquamephyton Inj) 10 mg ONCE ONCE SQ ; Start 12/12/16 at 11:00; Stop 12/12/16 at 11:01; Status Cancel Phytonadione (Vitamin K Inj) 10 mg ONCE ONCE SQ Last administered on 11:00; Start 12/12/16 at 11:00; Stop 12/12/16 at 11:01; Status DC Cefazolin Sodium (Ancef Inj) 2,000 mg ONCE ONCE IV Last administered on 09:53; Start 12/12/16 at 09:50; Stop 12/12/16 at 10:42; Status DC Miscellaneous Information (Post-op Orders (for Pharmacy)) STAT ONCE XX ; Start 12/12/16 at 11:30; Stop 12/12/16 at 13:02; Status DC Cefazolin Sodium/ Dextrose 50 ml @ 100 mls/hr Q8H IV Last administered on 12/14 08:22; Start 12/12/16 at 18:00; Stop 12/14/16 at 10:29; Status DC Calcium/Vitamin D (Oscal-D 250-125) 250 mg Q12HR PO Last administered on 08:40; Start 12/12/16 at 21:00 Cholecalciferol (Vitamin D3) 1,000 units DAILY PO Last administered on 08:40; Start 12/13/16 at 09:00 Propofol 100 ml @ As Directed STK-MED ONCE .ROUTE ; Start 12/12/16 at 12:14; Stop 12/12/16 at 12:15; Status DC Midazolam HCl (Versed Inj) 2 mg STK-MED ONCE .ROUTE ; Start 12/12/16 at 12:31; Stop 12/12/16 at 12:32; Status DC Miscellaneous Information ALL NURSING DEPARTME... UNSCH PRN .XX SEE LABEL COMMENTS; Start 12/12/16 at 12:30; Stop 12/13/16 at 12:29; Status DC Propofol 100 ml @ 2.25 mls/hr TITRATE PRN IV Sedation Last administered on 09:40; Start 12/12/16 at 13:15; Stop 12/12/16 at 18:34; Status DC Sodium Chloride 250 ml @ 15 mls/hr ONCE ONCE IV ; Start 12/12/16 at 14:30; Stop 12/13/16 at 07:09; Status DC Cefazolin Sodium/ Dextrose 50 ml @ As Directed STK-MED ONCE .ROUTE ; Start 12/12 at 14:44; Stop 12/12/16 at 14:45; Status DC Lorazepam (Ativan Inj) 2 mg STK-MED ONCE .ROUTE Last administered on 12/12/16 15:11; Start 12/12/16 at 15:11; Stop 12/12/16 at 15:12; Status DC Lorazepam (Ativan Inj) 2 mg NOW ONCE IV ; Start 12/12/16 at 15:45; Stop at 15:46; Status DC Sodium Chloride 1,000 ml @ 84 mls/hr [id number] IV Last administered on 04:00; Start 12/12/16 at 16:15; Stop 12/14/16 at 09:59; Status DC Chlorhexidine Gluconate (Peridex 0.12% Liq) 15 ml BID@08,20 MT Last administered on 12/15/16 20:00; Start 12/12/16 at 20:00 Propofol 100 ml @ 2.25 mls/hr TITRATE PRN IV SEDATION Last administered on 05:41; Start 12/12/16 at 17:15; Stop 12/14/16 at 09:59; Status DC Cyanocobalamin (Vitamin B12 Inj) 1,000 mcg ONCE ONCE SQ Last administered on 12/12/16 20:27; Start 12/12/16 at 19:00; Stop 12/12/16 at 19:04; Status DC Folic Acid (Folate) 1 mg DAILY PO Last administered on 12/16/16 08:40; Start 12/13/16 at 09:00 Hydralazine HCl (Apresoline Inj) 20 mg STK-MED ONCE .ROUTE Last administered on 12/13/16 13:44; Start 12/13/16 at 13:44; Stop 12/13/16 at 13:45; Status DC Hydralazine HCl (Apresoline Inj) 20 mg Q4H PRN IV SBP>160, DBP>90 Last administered on 12/14/16 09:41; Start 12/13/16 at 14:30 Albuterol Sulfate (Proair Hfa Inh) 2 puff Q4HR PRN INH SOB/WHEEZING Last administered on 12/16/16 08:45; Start 12/16/16 at 02:45 A/P Assessment and Plan A/P Acute respiratory failure on mechanical ventilation - resolved s/p intubation/ extubation. Hematoma on left side of neck - improving. liver cirrhosis due to alcohol abuse and hepatitis C counselled on drinking cessation. Left humerus open supracondylar intra-articular fracture status post ORIF continue with pain control- management per ortho Acute blood loss anemia - stable. will monitor periodically. Thrombocytopenia most likely secondary to liver cirrhosis - stable, persistent , suspect hypersplenism continue supportive care- hematology following. DVT prophylaxis with SCD's- no chemical prophylaxis due to hematoma/ thrombocytopenia PT consulted. Discharge Planning dc home with C- within the next 24 hrs - pending the CBC/BMP today. f/u with pcp, ortho and hematology. see med list. d/w the patient and hematology. time spent 35 min. Kwame Johnson MD Dec 16, 2016 10:12
[2016-12-16] MEDS ORDERED: MULT1TAB46 PO (10:15)
[2016-12-16] MEDS ORDERED: GNP100TA3 PO (10:15)
[2016-12-16] MEDS ORDERED: FOLI1TAB6 PO (10:15)
--- NOTE | 2016-12-16 10:16 | HHI.FF ---
Face to Face Verification Diagnosis: (1) Thrombocythemia (2) Left humeral fracture Physical Therapy Order: Evaluate and Treat Home Health Nursing Order: Medical education Signs/symptoms of disease process Medication education-adverse effect Nursing assessment with vital signs I have seen patient Nimisha Watts on 12/16/16. My clinical findings support the need for the requested home health care services because: Ltd mobility - disease progression I certify that my clinical findings support that this patient is homebound because: Unsteady gait/balance Kwame Johnson MD Dec 16, 2016 10:16
--- NOTE | 2016-12-16 10:17 | HHI.DS ---
Discharge Summary Admission Date Dec 11, 2016 at 03:03 Discharge Date: Dec 16, 2016 Admitting Diagnosis elbow fracture, hyponatremia, alcohol intoxication, COPD (1) Thrombocythemia ICD Code: D47.3 - Thrombocythemia Diagnosis: Principal Status: Chronic (2) Left humeral fracture ICD Code: S42.302A - Unspecified fracture of shaft of humerus, left arm, initial encounter for closed fracture Diagnosis: Principal Procedures Irrigation and debridement of open left distal humerus fracture, open reduction internal fixation left supracondylar distal humerus fracture Brief History - From Admission 66-year-old female with chronic alcoholism, alcoholic cirrhosis, hepatitis C who presents with mechanical fall, left elbow fracture. Patient was drinking heavily, says she was walking up the stairs go to bathroom, fell on her elbow. She denies any other injuries. Denies any chest pain or shortness of breath. Denies any nausea or vomiting. Denies lightheadedness or dizziness. Denies syncope. CBC/BMP: 12/15/16 1726 12/15/16 1726 Significant Findings Laboratory Tests Test 12/13/16 11:55 12/13/16 20:31 12/14/16 03:48 12/15/16 17:26 White Blood Count 2.8 TH/MM3 (4.0-11.0) 3.3 TH/MM3 (4.0-11.0) 3.1 TH/MM3 (4.0-11.0) 2.5 TH/MM3 (4.0-11.0) Red Blood Count 3.02 MIL/MM3 (4.00-5.30) 3.15 MIL/MM3 (4.00-5.30) 3.06 MIL/MM3 (4.00-5.30) 2.98 MIL/MM3 (4.00-5.30) Hemoglobin 9.8 GM/DL (11.6-15.3) 10.2 GM/DL (11.6-15.3) 9.9 GM/DL (11.6-15.3) 10.0 GM/DL (11.6-15.3) Hematocrit 27.7 % (35.0-46.0) 28.8 % (35.0-46.0) 28.2 % (35.0-46.0) 28.2 % (35.0-46.0) Red Cell Distribution Width 20.1 % (11.6-17.2) 20.6 % (11.6-17.2) 20.0 % (11.6-17.2) 19.0 % (11.6-17.2) Platelet Count 26 TH/MM3 (150-450) 29 TH/MM3 (150-450) 31 TH/MM3 (150-450) 43 TH/MM3 (150-450) Monocytes (%) (Auto) 10.0 % (0.0-8.0) 18.2 % (0.0-8.0) Lymphocytes # (Auto) 0.5 TH/MM3 (1.0-4.8) 0.7 TH/MM3 (1.0-4.8) Platelet Estimate LOW (NORMAL) LOW (NORMAL) LOW (NORMAL) Prothrombin Time 13.0 SEC (9.8-11.6) 12.1 SEC (9.8-11.6) 12.9 SEC (9.8-11.6) Albumin 2.7 GM/DL (3.4-5.0) 2.8 GM/DL (3.4-5.0) Calcium Level 8.0 MG/DL (8.5-10.1) Total Bilirubin 4.6 MG/DL (0.2-1.0) 3.7 MG/DL (0.2-1.0) Sodium Level 135 MEQ/L (136-145) 134 MEQ/L (136-145) Potassium Level 3.1 MEQ/L (3.5-5.1) 3.0 MEQ/L (3.5-5.1) Estimat Glomerular Filtration Rate 87 ML/MIN (>89) Neutrophils % (Manual) 81 % (16-70) 74 % (16-70) Neutrophils # (Auto) 1.3 TH/MM3 (1.8-7.7) Blood Urea Nitrogen 6 MG/DL (7-18) Random Glucose 127 MG/DL (74-106) Imaging Last Impressions Elbow X-Ray 12/12/16 0000 Signed Impressions: Service Date/Time: December 11:08 - CONCLUSION: Good position and alignment on this postoperative study. Magen Hill MD Chest X-Ray 12/12/16 0000 Signed Impressions: Service Date/Time: December 12:57 - CONCLUSION: 1. ETT in good position. 2. Mild bibasilar atelectasis. Robbie Correia MD PE at Discharge GENERAL: This is a well-nourished, well-developed patient, in no apparent distress. Neck; right sided neck hematoma noted. CARDIOVASCULAR: Regular rate and regular rhythm without murmurs, gallops, or rubs. RESPIRATORY: Clear to auscultation. Breath sounds equal bilaterally. No wheezes , rales, or rhonchi. GASTROINTESTINAL: Abdomen soft, non-tender, nondistended. Normal, active bowel sounds MUSCULOSKELETAL:left arm covered with clean dressing. NEURO: Alert & Oriented x4 to person, place, time, situation. Moves all ext x4 Hospital Course Acute respiratory failure on mechanical ventilation - resolved s/p intubation/ extubation. Hematoma on left side of neck - improving. liver cirrhosis due to alcohol abuse and hepatitis C counselled on drinking cessation. Left humerus open supracondylar intra-articular fracture status post ORIF continue with pain control- management per ortho Acute blood loss anemia - stable. will monitor periodically. Thrombocytopenia most likely secondary to liver cirrhosis - stable, persistent , suspect hypersplenism continue supportive care- hematology following. DVT prophylaxis with SCD's- no chemical prophylaxis due to hematoma/ thrombocytopenia PT consulted. Pt Condition on Discharge: Fair Discharge Disposition: Disch w/ Home Health Serv Discharge Time: > 30 minutes Discharge Instructions DIET: Follow Instructions for: Heart Healthy Diet Activities you can perform: Regular-No Restrictions Follow up Referrals: Oncology Orthopedics - 2 Weeks @ [facility] with Prince Parnell MD PCP Follow-up New Medications: Calcium Carbonate-Vitamin D (Calcium 600+D 200) 600-200 Mg-Unit Tab 1 TAB PO BID for Nutritional Supplement, #60 TAB 0 Refills Multiple Vitamin (Multi Vitamin Daily) 1 Tab Tab 1 TAB PO DAILY for vitamin for 30 Days, #30 TAB 0 Refills Oxycodone (Oxycodone) 10 Mg Tab 10 MG PO Q4H PRN for PAIN, #60 TAB 0 Refills Folic Acid (Folic Acid) 1 Mg Tablet 1 MG PO DAILY for vitamin for 30 Days, #30 TAB 0 Refills Thiamine HCl (Gnp Vitamin B-1) 100 Mg Tab 100 MG PO DAILY for vitamin for 30 Days, #30 TAB 0 Refills Continued Medications: Albuterol 6.7 GM Inh (Proventil Hfa 6.7 GM Inh) 90 Mcg/Act Aer 2 PUFF INH Q4HR PRN for SHORTNESS OF BREATH, #1 INHALER 0 Refills SHAKE WELL BEFORE USE Ferrous Sulfate (Ferrous Sulfate) 325 Mg Tab 325 MG PO DAILY for Nutritional Supplement, #30 TAB 2 Refills Furosemide Liq (Furosemide Liq) 10 Mg/Ml Soln 40 MG PO DAILY, #240 ML 0 Refills Spironolactone (Spironolactone) 100 Mg Tab 100 MG PO DAILY, #30 TAB 0 Refills Discontinued Medications: Hydrocodone-Acetaminophen (Hydrocodone-Acetaminophen) 10-325 mg Tab 1 TAB PO Q4H PRN for pain, #30 TAB Rivaroxaban (Xarelto) 10 Mg Tab 10 MG PO DAILY for clot prevention, #20 TAB Kwame Johnson MD Dec 16, 2016 10:17
[2016-12-16 13:54] LABS: AUTOMATED NEUTROPHIL # 1.3 TH/MM3 (1.8-7.7); BASOPHIL % 1.1 % (0.0-2.0); EOSINOPHIL % 1.6 % (0.0-4.0); HEMATOCRIT 31.1 % (35.0-46.0); HEMOGLOBIN 10.7 GM/DL (11.6-15.3); LYMPHOCYTE # 0.7 TH/MM3 (1.0-4.8); MEAN CELL VOLUME 95.7 FL (80.0-100.0); MEAN CORPUSCULAR HEMOGLOBIN 32.8 PG (27.0-34.0); MEAN CORPUSCULAR HGB CONC 34.3 % (32.0-36.0); MEAN PLATELET VOLUME 8.9 FL (7.0-11.0); MONO % 16.5 % (0.0-8.0); MONOCYTE # 0.4 TH/MM3 (0-0.9); NEUT % 51.8 % (16.0-70.0); PLATELET COUNT 47 TH/MM3 (150-450); RED BLOOD COUNT 3.25 MIL/MM3 (4.00-5.30); WHITE BLOOD COUNT 2.6 TH/MM3 (4.0-11.0)
[2016-12-16 14:07] LABS: INTERNATIONAL NORMALIZED RATIO 1.2 RATIO; PROTHROMBIN TIME - PATIENT 13.6 SEC (9.8-11.6)
[2016-12-16 14:26] LABS: ALBUMIN 2.9 GM/DL (3.4-5.0); ALKALINE PHOSPHATASE 105 U/L (45-117); ALT (GPT) 15 U/L (10-53); AST (GOT) 33 U/L (15-37); BICARBONATE 31.1 MEQ/L (21.0-32.0); BLOOD UREA NITROGEN 7 MG/DL (7-18); CALCIUM 8.4 MG/DL (8.5-10.1); CHLORIDE 95 MEQ/L (98-107); CREATININE 0.74 MG/DL (0.50-1.00); GLOMERULAR FILTRATION RATE 79 ML/MIN (>89); GLUCOSE,RANDOM 142 MG/DL (74-106); SODIUM (NA) 134 MEQ/L (136-145); TOTAL BILIRUBIN ADULT 3.7 MG/DL (0.2-1.0); TOTAL PROTEIN 7.4 GM/DL (6.4-8.2)
[2016-12-16] MEDS ORDERED: POTASSIUM CHLORIDE 10 MEQ CAP PO ONE (15:30)
[2016-12-16] MEDS ORDERED: POTASSIUM CHLOR 20 MEQ PREMIX 100 ML IV ONE (15:30)
[2016-12-16] MEDS ORDERED: POTASSIUM CHLORIDE 10 MEQ CONTROLLED RELEASE TAB PO ONE ×2 (19:00→22:00)
== END 2016-12-16 15:35 | disposition left against medical advice (07) | DRG 492 ==
LOC: NEPD 21:28 → NEDA 12-11 03:03 → N06B 12-11 04:01 → N03B 12-12 12:46 → HIMW 12-12 16:00 → N06A 12-14 16:44
PROVIDERS: ADMIT Internal Medicine; ATTEND Internal Medicine
PROC: 5A1945Z Respiratory Ventilation, 24-96 Consecutive Hours (ICD-10-PCS; 2016-12-12)
PROC: 30233R1 Transfusion of Nonautologous Platelets into Peripheral Vein, Percutaneous Approach (ICD-10-PCS; 2016-12-12)
PROC: 30233N1 Transfusion of Nonautologous Red Blood Cells into Peripheral Vein, Percutaneous Approach (ICD-10-PCS; 2016-12-12)
PROC: 0PSG04Z Reposition Left Humeral Shaft with Internal Fixation Device, Open Approach (ICD-10-PCS; principal; 2016-12-12 09:26)
DX: S42.422B Displaced comminuted supracondylar fracture without intercondylar fracture of left humerus, initial encounter for open fracture (principal); J95.821 Acute postprocedural respiratory failure; K76.6 Portal hypertension; D68.4 Acquired coagulation factor deficiency; E87.1 Hypo-osmolality and hyponatremia; D62 Acute posthemorrhagic anemia; T80.1XXA Vascular complications following infusion, transfusion and therapeutic injection, initial encounter; D69.59 Other secondary thrombocytopenia; I50.9 Heart failure, unspecified; D69.6 Thrombocytopenia, unspecified; K70.30 Alcoholic cirrhosis of liver without ascites; B19.20 Unspecified viral hepatitis C without hepatic coma; K21.9 Gastro-esophageal reflux disease without esophagitis; D72.819 Decreased white blood cell count, unspecified; D73.1 Hypersplenism; J44.9 Chronic obstructive pulmonary disease, unspecified; T80.89XA Other complications following infusion, transfusion and therapeutic injection, initial encounter; M19.90 Unspecified osteoarthritis, unspecified site; F10.229 Alcohol dependence with intoxication, unspecified; F12.90 Cannabis use, unspecified, uncomplicated; F41.9 Anxiety disorder, unspecified; F17.210 Nicotine dependence, cigarettes, uncomplicated; W10.9XXA Fall (on) (from) unspecified stairs and steps, initial encounter; Y90.8 Blood alcohol level of 240 mg/100 ml or more; Y84.8 Other medical procedures as the cause of abnormal reaction of the patient, or of later complication, without mention of misadventure at the time of the procedure; Y92.234 Operating room of hospital as the place of occurrence of the external cause; Y93.01 Activity, walking, marching and hiking; Z79.1 Long term (current) use of non-steroidal anti-inflammatories (NSAID); Z86.19 Personal history of other infectious and parasitic diseases; Z88.2 Allergy status to sulfonamides; Z88.5 Allergy status to narcotic agent; Z90.2 Acquired absence of lung [part of]; Z96.641 Presence of right artificial hip joint
CPT/HCPCS: 31500; 36415; 36430; 71010; 73070; 76000; 76937; 80048; 80053; 80076; 80307; 83735; 85007; 85025; 85027; 85060; 85379; 85384; 85610; 85730; 86077; 86850; 86870; 86880; 86900; 86901; 86920; 86921; 86922; 93005; 94002; 94003; 94150; 94640; 94667; 94668; 96374; J0131; J0360; J0690; J1580; J2060; J2250; J2270; J2405; J3420; J3430; J7030; J7040; P9016; P9035

== ENCOUNTER → 2017-05-19 | Outpatient (CLI) | payer MEDICARE, OTHER ==
[~2017-05-19] MED LIST changes: -HYDR-3583 PO; -XARE10TA PO
[2017-05-19 12:39] LABS: AUTOMATED NEUTROPHIL # 2.3 TH/MM3 (1.8-7.7); BASOPHIL % 0.8 % (0.0-2.0); EOSINOPHIL # 0.1 TH/MM3 (0-0.4); EOSINOPHIL % 2.1 % (0.0-4.0); HEMOGLOBIN 12.3 GM/DL (11.6-15.3); LYMPH % 26.3 % (9.0-44.0); MEAN CELL VOLUME 98.8 FL (80.0-100.0); MEAN CORPUSCULAR HEMOGLOBIN 33.7 PG (27.0-34.0); MEAN CORPUSCULAR HGB CONC 34.1 % (32.0-36.0); MEAN PLATELET VOLUME 9.1 FL (7.0-11.0); MONO % 11.3 % (0.0-8.0); MONOCYTE # 0.4 TH/MM3 (0-0.9); NEUT % 59.5 % (16.0-70.0); PLATELET COUNT 47 TH/MM3 (150-450); RED BLOOD COUNT 3.65 MIL/MM3 (4.00-5.30); RED CELL DISTRIBUTION WIDTH 14.6 % (11.6-17.2); WHITE BLOOD COUNT 3.8 TH/MM3 (4.0-11.0)
[2017-05-19 12:49] LABS: ALBUMIN 3.4 GM/DL (3.4-5.0); ALT (GPT) 19 U/L (10-53); AST (GOT) 24 U/L (15-37); BICARBONATE 28.6 MEQ/L (21.0-32.0); BLOOD UREA NITROGEN 4 MG/DL (7-18); CALCIUM 8.6 MG/DL (8.5-10.1); CHLORIDE 102 MEQ/L (98-107); CHOLESTEROL 129 MG/DL (120-200); CREATININE 0.71 MG/DL (0.50-1.00); GLOMERULAR FILTRATION RATE 82 ML/MIN (>89); GLUCOSE,FASTING 92 MG/DL (74-99); SODIUM (NA) 136 MEQ/L (136-145)
[2017-05-19 12:51] LABS: ALKALINE PHOSPHATASE 137 U/L (45-117); CHOLESTEROL/ HDL RATIO 2.32 RATIO; HDL CHOLESTEROL 55.6 MG/DL (40.0-60.0); LDL CHOLESTEROL 58 MG/DL (0-99); TOTAL PROTEIN 8.2 GM/DL (6.4-8.2); TRIGLYCERIDES 75 MG/DL (42-150)
== END ==
LOC: CLAB 12:03
PROVIDERS: ATTEND Family Medicine
DX: K74.60 Unspecified cirrhosis of liver (principal)
CPT/HCPCS: 36415; 80053; 80061; 85025